=== PATIENT | female | born 1950 | race Caucasian/White ===

== ENCOUNTER 2020-04-04 06:25 | Outpatient (REF) | payer MEDICARE, SELFPAY ==
[2020-04-04 07:58] LABS: MANUAL DIFF FLAG NO
[2020-04-04 08:12] LABS: Basophils Absolute Auto 0.1 X10*3/uL (0.0-0.2); Basophils Percent Auto 0.5 % (0-2); Eosinophils Absolute Auto 0.3 X10*3/uL (0.0-0.4); Eosinophils Percent Auto 2.2 % (0-4); Hematocrit 48.6 % (37-47); Hemoglobin 15.6 g/dl (12.0-16.0); Imm Gran Abs Auto 0.05 X10*3/uL (0.00-0.03); Imm Gran Pct Auto 0.4 % (0.0-0.4); Lymphocytes Absolute Auto 4.2 X10*3/uL (1.2-4.9); Lymphocytes Percent Auto 36.7 % (20-40); Mean Corpuscular HGB Conc 32.1 g/dl (31.0-35.0); Mean Corpuscular Hemoglobin 28.6 pg (27.0-33.0); Mean Corpuscular Volume 89.2 fL (80-98); Mean Platelet Volume 11.3 fL (9.4-12.3); Monocytes Absolute Auto 0.8 X10*3/uL (0.1-1.2); Neutrophils Percent Auto 53.2 % (45-73); Platelet Count 283 X10*3/uL (160-400); Red Blood Count 5.45 X10*6/uL (4.20-5.50); Red Cell Distribution Width 13.5 % (11.0-16.0); White Blood Count 11.4 X10*3/uL (4.8-10.8)
[2020-04-04 08:43] LABS: Estimated Average Glucose 108 mg/dL; Hemoglobin A1c % 5.4 %
[2020-04-04 08:58] LABS: Thyroid Stimulating Hormone 1.56 uIU/mL (0.32-4.0)
[2020-04-04 09:07] LABS: Alanine Aminotransferase 9 U/L (0-31); Albumin Level 4.6 g/dL (3.5-5.0); Alkaline Phosphatase 132 U/L (39-117); Anion Gap 17 (12-20); Aspartate Amino Transferase 13 U/L (5-31); Bilirubin Total 0.7 mg/dL (0.0-1.0); Blood Urea Nitrogen 12 mg/dL (9-16); Calcium 9.5 mg/dL (8.4-10.2); Carbon Dioxide 25 mmol/L (22-29); Chloride 101 mmol/L (96-108); Cholesterol 188 mg/dL; Estimated Glomerular Filt Rate > 60; Glucose Fasting 122 mg/dL (60-99); HDL Cholesterol 59 mg/dL; LDL Cholesterol Calculated 83 mg/dl; Potassium 4.1 mmol/l (3.3-5.1); Sodium 139 mmol/L (135-145); Total Protein 7.7 g/dL (6.5-8.0); Triglycerides 234 mg/dL
== END 2020-04-04 06:26 | disposition home or self-care (01) ==
LOC: HO.LAB 06:25
PROVIDERS: Visit Provider Physician Assistant
DX: E78.5 Hyperlipidemia, unspecified (principal); I10 Essential (primary) hypertension; R73.09 Other abnormal glucose
CPT/HCPCS: 36415; 80053; 80061; 83036; 84443; 85025

== ENCOUNTER 2020-10-10 06:07 | Outpatient (REF) | payer MEDICARE, SELFPAY ==
[2020-10-10 07:59] LABS: Hematocrit 45.8 % (37-47); Hemoglobin 15.3 g/dl (12.0-16.0); Mean Corpuscular HGB Conc 33.4 g/dl (31.0-35.0); Mean Corpuscular Hemoglobin 29.5 pg (27.0-33.0); Mean Corpuscular Volume 88.4 fL (80-98); Mean Platelet Volume 11.4 fL (9.4-12.3); Platelet Count 248 X10*3/uL (160-400); Red Blood Count 5.18 X10*6/uL (4.20-5.50); Red Cell Distribution Width 13.3 % (11.0-16.0); White Blood Count 13.9 X10*3/uL (4.8-10.8)
[2020-10-10 08:06] LABS: Estimated Average Glucose 114 mg/dL; Hemoglobin A1C 151.6739 umol/L; Hemoglobin A1c % 5.6 %
[2020-10-10 08:12] LABS: Alanine Aminotransferase 11 U/L (0-31); Albumin Level 4.5 g/dL (3.5-5.0); Alkaline Phosphatase 137 U/L (39-117); Anion Gap 15 (12-20); Aspartate Amino Transferase 14 U/L (5-31); Blood Urea Nitrogen 9 mg/dL (9-16); Calcium 10.1 mg/dL (8.4-10.2); Carbon Dioxide 26 mmol/L (22-29); Chloride 101 mmol/L (96-108); Cholesterol 195 mg/dL; Estimated Glomerular Filt Rate > 60; Glucose Fasting 138 mg/dL (60-99); HDL Cholesterol 57 mg/dL; LDL Cholesterol Calculated 88 mg/dl; Potassium 4.4 mmol/L (3.3-5.1); Sodium 138 mmol/L (135-145); Total Protein 7.7 g/dL (6.5-8.0); Triglycerides 252 mg/dL
[2020-10-10 08:33] LABS: TSH reflex Free T4 2.35 uIU/mL (0.32-4.0)
[2020-10-10 09:14] LABS: Creatinine Urine 87.14 mg/dL; Microalbum/Creatinine Ratio Ur 17.2 ug/mg cr
== END 2020-10-10 06:08 | disposition home or self-care (01) ==
LOC: HO.LAB 06:07
PROVIDERS: PCP Physician Assistant; Visit Provider Physician Assistant
DX: E78.1 Pure hyperglyceridemia (principal); I10 Essential (primary) hypertension
CPT/HCPCS: 36415; 80053; 80061; 82043; 83036; 84443; 85027

== ENCOUNTER 2020-11-20 09:05 | Outpatient (REF) | payer MEDICARE, SELFPAY ==
--- NOTE | ~2020-11-20 | MM_ITS ---
EXAMINATION: BONE DENSITOMETRY CLINICAL INDICATION: Asymptomatic menopausal state. COMPARISON: Baseline BD dated 06/01/2018. TECHNIQUE: Using a [employer] DXA System (software version: 13.1) manufactured by [employer], dual-energy x-ray absorptiometry was performed of the lumbar spine and left hip. The images are of good technical quality. Summary results are attached. FINDINGS: AP SPINE L1-L4 (excluding L2 and L3): The data of L1-L4 has been changed to exclude the L2 and L3 vertebral bodies, because degenerative changes at these levels may cause overestimation of lumbar spine density. Current: BMD 1.086 g/cm2, Z-score 1.1, T-score -0.7, normal, 0.5% decrease from baseline (<5% change is not significant). Baseline: BMD 1.091 g/cm2. LEFT FEMUR, NECK: Current: BMD 0.815 g/cm2, Z-score 0.3, T-score -1.6, osteopenia. Baseline: BMD 0.857 g/cm2. LEFT FEMUR, TOTAL: Current: BMD 0.915 g/cm2, Z-score 0.9, T-score -0.7, normal, 5.0% decrease from baseline (<5% change is not significant). Baseline: BMD 0.963 g/cm2. IDENTIFIED RISK FACTORS: Menopause, family history (parental hip fracture), secondary osteoporosis. HISTORY OF FRACTURE: None listed. MEDICATIONS: None listed. MM/XR DEXA axial skeleton IMPRESSION: 1. DIAGNOSIS: Osteopenia based on the lowest T-score value of -1.6 in the femoral neck applying World Health Organization criteria. 2. 10-YEAR FRACTURE RISK PREDICTION, FRAX: Major osteoporotic fracture (clinical spine, forearm, hip or shoulder) 17.1%. Hip fracture 6.0%. 3. Treatment Recommendations: NOF guidelines recommend consideration for treatment in postmenopausal women and men age 50 and older presenting with the following: -A hip or vertebral (clinical or morphometric) fracture. -T-score less than or equal to -2.5 at the femoral neck or spine after appropriate evaluation to exclude secondary causes. -Low bone mass at the hip or spine and a 10-year fracture probability by FRAX of greater than or equal to 3% for hip fracture or greater than or equal to 20% for major osteoporotic fracture based on the [place] adapted WHO algorithm. 4. Other Recommendations: All treatment decisions require clinical judgment and consideration of individual patient factors, including patient preferences, comorbidities, previous drug use, risk factors not captured in the FRAX model (e.g. frailty, falls, vitamin D deficiency, increased bone turnover, interval significant decline in bone density) and possible under or overestimation of fracture risk by FRAX. Additional medical evaluation for secondary cause of low bone mineral density may be appropriate. FUTURE SCAN RECOMMENDATION: People with diagnosed cases of osteoporosis or at high risk for fracture should have regular bone mineral density tests. For patients eligible for Medicare, routine testing is allowed once every 2 years. The testing frequency can be increased to one year for patients who have rapidly progressing disease, those who are receiving or discontinuing medical therapy to restore bone mass, or have additional risk factors.
== END 2020-11-20 09:06 | disposition home or self-care (01) ==
LOC: HO.MAMMO 09:05
PROVIDERS: PCP Physician Assistant; Visit Provider Nurse Practitioner Family
DX: Z13.820 Encounter for screening for osteoporosis (principal); M85.80 Other specified disorders of bone density and structure, unspecified site; Z78.0 Asymptomatic menopausal state
CPT/HCPCS: 77080

== ENCOUNTER 2020-12-24 10:17 | Outpatient (REF) | payer MEDICARE, SELFPAY ==
--- NOTE | ~2020-12-24 | MM_ITS ---
EXAMINATION: MM SCREENING DIGITAL BREAST TOMOSYNTHESIS, BILATERAL CLINICAL INFORMATION: Screening. Asymptomatic. The lifetime risk of breast cancer based on the Tyrer-Cuzick Model is 3.6%. COMPARISON: Mammography: June 01, 2018 TECHNIQUE: Digital breast tomosynthesis is performed in both the craniocaudal and mediolateral oblique views along with computer-aided detection (CAD). Synthesized 2D images are generated from the tomosynthesis. FINDINGS: There are scattered areas of fibroglandular density (ACR BI-RADS breast composition Category b). On craniocaudal views bilaterally. There is question of asymmetric densities which are not circumscribed centrally without definite associated abnormality on mediolateral oblique projections however there is some dense tissue seen superiorly on mediolateral oblique projections bilaterally and on craniocaudal view by stefani since this these regions appear to be within the superior breasts bilaterally. Spot compression views are recommended. MM/MM tomosynthesis screening BI IMPRESSION: Bilateral regions of density on craniocaudal views for which spot compression views and possible ultrasound are recommended. ASSESSMENT: BI-RADS 0: Incomplete - Need Additional Imaging Evaluation RECOMMENDATION: 1. Additional views of the bilateral breasts 2. Targeted ultrasound if warranted after review of the additional views. 3. Radiology department staff will contact the patient for additional imaging. This patient's information was entered into a reminder system with a target due date for their next mammogram.
== END 2020-12-24 10:18 | disposition home or self-care (01) ==
LOC: HO.MAMMO 10:17
PROVIDERS: Visit Provider Physician Assistant
DX: Z12.31 Encounter for screening mammogram for malignant neoplasm of breast (principal)
CPT/HCPCS: 77063; 77067

== ENCOUNTER 2021-01-06 10:27 | Outpatient (REF) | payer MEDICARE, SELFPAY ==
--- NOTE | ~2021-01-06 | MM_ITS ---
EXAMINATION: MM DIAGNOSTIC DIGITAL BREAST TOMOSYNTHESIS, BILATERAL CLINICAL INFORMATION: Recall from screening for asymmetric density central outer left breast mid depth CC view and asymmetric density central right breast mid depth CC view. COMPARISON: Mammography: 12/24/2020, 06/01/2018 (baseline). TECHNIQUE: Digital breast tomosynthesis is performed. 2D images are generated from the tomosynthesis. The following views are obtained: Bilateral spot CC, bilateral rolled CC x2. FINDINGS: There are scattered areas of fibroglandular density (ACR BI-RADS breast composition Category b). The additional views show no interval mass or architectural abnormality. There are expected minor shifting fibroglandular densities. No developing density. No significant change from baseline study. Results are discussed with the patient at time of visit. MM/MM tomosynthesis added view BI IMPRESSION: Additional views show no significant changes from baseline exam. ASSESSMENT: BI-RADS 2: Benign RECOMMENDATION: Routine annual mammography screening. This patient's information was entered into a reminder system with a target due date for their next mammogram.
== END 2021-01-06 10:28 | disposition home or self-care (01) ==
LOC: HO.MAMMO 10:27
PROVIDERS: Visit Provider Physician Assistant
DX: R92.2 Inconclusive mammogram (principal)
CPT/HCPCS: 77062; 77066

== ENCOUNTER 2021-05-15 06:08 | Outpatient (REF) | payer MEDICARE, SELFPAY ==
[2021-05-15 07:26] LABS: Hematocrit 47.3 % (37.0-47.0); Hemoglobin 15.5 g/dl (12.0-16.0); Mean Corpuscular HGB Conc 32.8 g/dl (31.0-35.0); Mean Corpuscular Hemoglobin 28.9 pg (27.0-33.0); Mean Corpuscular Volume 88.2 fL (80.0-98.0); Mean Platelet Volume 11.2 fL (9.4-12.3); Platelet Count 217 X10*3/uL (160-400); Red Blood Count 5.36 X10*6/uL (4.20-5.50); Red Cell Distribution Width 13.2 % (11.0-16.0); White Blood Count 10.7 X10*3/uL (4.8-10.8)
[2021-05-15 07:30] LABS: Estimated Average Glucose 108 mg/dL; Hemoglobin A1c % 5.4 %
[2021-05-15 08:01] LABS: Alanine Aminotransferase 10 U/L (0-31); Albumin Level 4.5 g/dL (3.5-5.0); Alkaline Phosphatase 100 U/L (39-117); Anion Gap 14 (12-20); Aspartate Amino Transferase 16 U/L (5-31); Bilirubin Total 0.9 mg/dL (0.0-1.0); Blood Urea Nitrogen 15 mg/dL (9-16); Carbon Dioxide 28 mmol/L (22-29); Chloride 100 mmol/L (96-108); Cholesterol 174 mg/dL; Estimated Glomerular Filt Rate > 60; Glucose Fasting 130 mg/dL (60-99); HDL Cholesterol 63 mg/dL; LDL Cholesterol Calculated 81 mg/dl; Sodium 138 mmol/L (135-145); Total Protein 7.6 g/dL (6.5-8.0); Triglycerides 152 mg/dL
[2021-05-15 08:11] LABS: TSH reflex Free T4 1.82 uIU/mL (0.32-4.0)
[2021-05-15 09:34] LABS: Creatinine Urine 81.92 mg/dL; Microalbum/Creatinine Ratio Ur 15.8 ug/mg cr
== END 2021-05-15 06:09 | disposition home or self-care (01) ==
LOC: HO.LAB 06:08
PROVIDERS: PCP Physician Assistant; Visit Provider Physician Assistant
DX: R73.09 Other abnormal glucose (principal); I10 Essential (primary) hypertension; E78.1 Pure hyperglyceridemia
CPT/HCPCS: 36415; 80053; 80061; 82043; 83036; 84443; 85027

== ENCOUNTER 2021-11-21 06:06 | Outpatient (REF) | payer MEDICARE, SELFPAY ==
[2021-11-21 07:40] LABS: Hematocrit 46.5 % (37.0-47.0); Hemoglobin 15.3 g/dl (12.0-16.0); Mean Corpuscular HGB Conc 32.9 g/dl (31.0-35.0); Mean Corpuscular Hemoglobin 29.1 pg (27.0-33.0); Mean Corpuscular Volume 88.4 fL (80.0-98.0); Mean Platelet Volume 11.4 fL (9.4-12.3); Platelet Count 185 X10*3/uL (160-400); Red Blood Count 5.26 X10*6/uL (4.20-5.50); Red Cell Distribution Width 13.1 % (11.0-16.0); White Blood Count 8.8 X10*3/uL (4.8-10.8)
[2021-11-21 07:42] LABS: Alanine Aminotransferase 10 U/L (0-31); Aspartate Amino Transferase 15 U/L (5-31); Blood Urea Nitrogen 16 mg/dL (9-16); Cholesterol 193 mg/dL; Estimated Glomerular Filt Rate > 60; HDL Cholesterol 58 mg/dL
[2021-11-21 08:04] LABS: TSH reflex Free T4 1.99 uIU/mL (0.32-4.0)
[2021-11-21 09:09] LABS: Albumin Level 4.5 g/dL (3.5-5.0); Alkaline Phosphatase 122 U/L (39-117); Anion Gap 20 (12-20); Bilirubin Total 0.6 mg/dL (0.0-1.0); Calcium 9.4 mg/dL (8.4-10.2); Carbon Dioxide 20 mmol/L (22-29); Chloride 104 mmol/L (96-108); Glucose Fasting 122 mg/dL (60-99); LDL Cholesterol Calculated 100 mg/dl; Potassium 4.3 mmol/L (3.3-5.1); Sodium 140 mmol/L (135-145); Total Protein 7.9 g/dL (6.5-8.0); Triglycerides 177 mg/dL
[2021-11-21 13:46] LABS: Creatinine Urine 52.84 mg/dL; Microalbumin Urine < 5.0 mg/L
== END 2021-11-21 06:07 | disposition home or self-care (01) ==
LOC: HO.LAB 06:06
PROVIDERS: PCP Physician Assistant; Visit Provider Physician Assistant
DX: I10 Essential (primary) hypertension (principal); E78.1 Pure hyperglyceridemia
CPT/HCPCS: 36415; 80053; 80061; 82043; 84443; 85027

== ENCOUNTER 2022-06-15 06:19 | Outpatient (REF) | payer MEDICARE, SELFPAY ==
[2022-06-15 08:04] LABS: Hemoglobin 15.4 g/dl (12.0-16.0); Mean Corpuscular HGB Conc 33.5 g/dl (31.0-35.0); Mean Corpuscular Hemoglobin 29.6 pg (27.0-33.0); Mean Corpuscular Volume 88.5 fL (80.0-98.0); Mean Platelet Volume 10.9 fL (9.4-12.3); Platelet Count 235 X10*3/uL (160-400); Red Cell Distribution Width 13.2 % (11.0-16.0); White Blood Count 10.2 X10*3/uL (4.8-10.8)
[2022-06-15 08:26] LABS: Alanine Aminotransferase 11 U/L (0-31); Albumin Level 4.5 g/dL (3.5-5.0); Alkaline Phosphatase 102 U/L (39-117); Anion Gap 16 (12-20); Aspartate Amino Transferase 14 U/L (5-31); Blood Urea Nitrogen 9 mg/dL (9-16); Calcium 9.6 mg/dL (8.4-10.2); Carbon Dioxide 27 mmol/L (22-29); Chloride 100 mmol/L (96-108); Cholesterol 182 mg/dL; Estimated Glomerular Filt Rate > 60; Glucose Fasting 118 mg/dL (60-99); HDL Cholesterol 68 mg/dL; LDL Cholesterol Calculated 79 mg/dl; Potassium 3.7 mmol/L (3.3-5.1); Sodium 139 mmol/L (135-145); Total Protein 7.3 g/dL (6.5-8.0); Triglycerides 178 mg/dL
[2022-06-15 08:44] LABS: TSH reflex Free T4 1.94 uIU/mL (0.32-4.0)
[2022-06-15 09:07] LABS: Creatinine Urine 151.28 mg/dL; Microalbum/Creatinine Ratio Ur 19.8 ug/mg cr
== END 2022-06-15 06:20 | disposition home or self-care (01) ==
LOC: HO.LAB 06:19
PROVIDERS: PCP Physician Assistant; Visit Provider Physician Assistant
DX: R73.09 Other abnormal glucose (principal); I10 Essential (primary) hypertension
CPT/HCPCS: 36415; 80053; 80061; 82043; 84443; 85027

== ENCOUNTER 2022-12-11 06:07 | Outpatient (REF) | payer MEDICARE, SELFPAY ==
[2022-12-11 07:12] LABS: Hematocrit 47.4 % (37.0-47.0); Hemoglobin 15.6 g/dl (12.0-16.0); Mean Corpuscular HGB Conc 32.9 g/dl (31.0-35.0); Mean Corpuscular Hemoglobin 29.3 pg (27.0-33.0); Mean Corpuscular Volume 89.1 fL (80.0-98.0); Platelet Count 240 X10*3/uL (160-400); Red Blood Count 5.32 X10*6/uL (4.20-5.50); Red Cell Distribution Width 13.1 % (11.0-16.0); White Blood Count 11.4 X10*3/uL (4.8-10.8)
[2022-12-11 07:36] LABS: Alanine Aminotransferase 9 U/L (0-31); Albumin Level 4.5 g/dL (3.5-5.0); Alkaline Phosphatase 103 U/L (39-117); Anion Gap 19 (12-20); Aspartate Amino Transferase 14 U/L (5-31); Bilirubin Total 0.6 mg/dL (0.0-1.0); Blood Urea Nitrogen 12 mg/dL (9-16); Calcium 10.4 mg/dL (8.4-10.2); Carbon Dioxide 24 mmol/L (22-29); Chloride 102 mmol/L (96-108); Cholesterol 188 mg/dL (<200); Estimated Glomerular Filt Rate > 60; Glucose Fasting 134 mg/dL (60-99); HDL Cholesterol 60 mg/dL (>40); LDL Cholesterol Calculated 90 mg/dL (<100); Potassium 3.9 mmol/L (3.3-5.1); Sodium 141 mmol/L (135-145); Total Protein 7.9 g/dL (6.5-8.0); Triglycerides 194 mg/dL (<150)
[2022-12-11 07:52] LABS: TSH reflex Free T4 2.05 uIU/mL (0.32-4.0)
== END 2022-12-11 06:08 | disposition home or self-care (01) ==
LOC: HO.LAB 06:07
PROVIDERS: PCP Physician Assistant; Visit Provider Physician Assistant
DX: E78.1 Pure hyperglyceridemia (principal); I10 Essential (primary) hypertension
CPT/HCPCS: 36415; 80053; 80061; 84443; 85027

== ENCOUNTER 2022-12-15 09:27 | Outpatient (AMB) | payer MEDICARE, SELFPAY ==
[2022-12-15 09:30] VITALS: BP 180/76; PULSE 135; RESP 17; O2SAT 97; BMI 24.0
--- NOTE | 2022-12-15 09:30 | A.OFFPC_ITS ---
Vital Signs 12/15/22 09:30 12/15/22 10:19 Height 5 ft 4 in Weight 140 lb BMI 24.0 BP 180/76 H 160/80 H Blood Pressure Location Lt brachial Position Sitting Respiration 17 Pulse 135 H Pulse Source Pulse Oximeter Pulse Oximetry (%) 97 Oxygen Delivery Method Room Air Intake Visit Reasons: f/u HTN Chemistry Tutor Required: No Accompanied by: Self / Same As Patient Allergies barium sulfate [CONTRAST,ORAL] Allergy (Unknown, Verified 12/15/22 10:06) NAUSEA AND VOMITTING lisinopril Allergy (Unknown, Verified 12/15/22 10:06) Cough Medication List - Last Reconciled 12/15/22 by Odell Galan PA-C atorvastatin 20 mg PO DAILY 90 days calcium carbonate (Calcium 500) 500 mg PO DAILY cholecalciferol (vitamin D3) 50 mcg PO DAILY losartan 75 mg (1.5 x 50 mg) PO DAILY 90 days omega-3 acid ethyl esters 1 cap PO DAILY Tobacco use date assessed: 06/17/22 Fall risk assessment: No Falls in past year Last assessed Fall Risk: 12/15/22 Dental Screening Dental Screen Date: 12/15/22 Did you have a dental visit in the last 12 months?: No Did you have a dental problem in the last 6 months where you did not have access to dental care?: No Was dental information given to patient?: Patient declined HPI f/u HTN HPI Details Asmita is a 72? y/o F here today for a follow-up visit. ? Patient has a pmhx significant for HTN, HLD, impaired glucose metabolism. ? .. ? HTN: Has been checking her blood pressures at home and reports systolics 130s to 140s s.? And heart rates 80s to 100. She does report when coming into the office her blood pressures and heart rates are elevated due to her anxiety. ?Denies any headaches, chest discomfort, shortness of breath. She reports since increasing losartan dose to 75 mg she has been been feeling funny and would like to return back to using valsartan 160 mg. PLAN: Will return back to valsartan with the addition of hydrochlorothiazide for better blood pressure control ? .. ? Impaired glucose metabolism: A1c acceptable, patient's fasting blood sugar continues to be elevated. She reports some dietary indiscretion as of late which can be attributed to her elevated blood sugars. ? .. ? Hyperlipidemia: Patient has been trying to cut down on her carbs and sugary foods. Have noted some weight loss. Lipid panel stable, triglycerides are slightly elevated.? 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 She will try to work on reducing her consumption of baked goods to help reduce her cholesterol panel. Laboratory Tests 06/15/22 12/11/22 06:33 06:16 WBC 11.4 H Hct 47.4 H Fasting Glucose 134 H Triglycerides 178 194 H TSH 2.05 PFSH Medical History Post-menopausal Screening for breast cancer Surgical History History of colonoscopy History of incisional hernia repair History of colectomy Family History Father Alzheimers disease Prostate cancer Mother Pulmonary disease Daughter Cholesteatoma Social History Housing: House Alcohol intake: current Alcohol intake frequency: holidays/special occasions only Alcohol type: wine Patient Tobacco Use Status: Former Tobacco user e-Cigarette/Vaping Use: Never Used Second Hand Smoke Exposure: No service: No Current occupational status: retired Cognitive needs: No Hearing needs: No Vision needs: Yes (Glasses) Questionnaire Thrive Questionnaire Date Thrive assessed: 06/17/22 FREDERICK-7 AMB Questionnaire FREDERICK-7 Date FREDERICK - 7 assessed: 06/17/22 Source: Developed by Drs. Reese Barrett, Pamela Hollis, Ry Woods and colleagues, with an educational kelly from [employer]. Review of Systems Const Denies headache(s) Eyes Denies loss of vision ENT Denies vertigo, Denies dizziness, Denies headache(s) and Denies sore throat Card Denies chest pain, Denies leg edema and Denies lightheadedness Resp Denies cough, Denies hemoptysis and Denies wheezing GI Denies abdominal pain, Denies melena, Denies constipation, Denies diarrhea and Denies vomiting Denies urinary frequency, Denies dysuria and Denies urinary urgency Musc Denies arthralgias, Denies joint swelling, Denies numbness and Denies tingling Neuro Denies Abnormal speech present, Denies behavioral changes, Denies vertigo, Denies dizziness, Denies headache(s), Denies loss of vision, Denies memory loss, Denies numbness and Denies tingling Psych Denies anxiety, Denies behavioral changes, Denies depression, Denies memory loss and Denies panic attacks Rajendra/Lymph Denies easy bleeding and Denies easy bruising Aller/Immun Denies wheezing Physical exam (Primary Care) Vital Signs: Last Vital Signs Pulse 135 H 12/15/22 09:30 Resp 17 12/15/22 09:30 BP 160/80 H 12/15/22 10:19 Pulse Ox 97 12/15/22 09:30 Oxygen Delivery Method Room Air 12/15/22 09:30 BMI result Body Mass Index 24.0 Tobacco/Smoking Status: Tobacco use Status Tobacco use date assessed 06/17/22 12/15/22 09:32 Patient Tobacco Use Status Former Tobacco user 12/15/22 09:32 e-Cigarette/Vaping Use Never Used 12/15/22 09:32 Thrive Assessment: Date of Thrive Assessment Date Thrive assessed 06/17/22 12/15/22 09:32 Const General: healthy appearing, no acute distress, alert and awake Nutritional Appearance: well nourished Orientation/consciousness: oriented to person, oriented to place and oriented to time HENMT Ears: TM's normal bilaterally General nose exam: Normal nasal mucous membranes and turbinates present Eyes Conjunctivae: conjunctivae normal Sclerae: sclerae normal Pupils: Equal, round and reactive pupils present Neck Neck: Yes no lymphadenopathy and Yes no JVD Thyroid: Thyroid normal Carotids: no bruits Resp Effort & Inspection: normal respiratory effort and not tachypneic Auscultation: no crackles, no rales, no rhonchi and no wheezes Cardio Rate: regular rate Rhythm: regular rhythm Heart sounds: no murmurs and normal S1 and S2 GI Palpation (GI): Soft to palpation, nontender, no hepatomegaly and no splenomegaly Auscultation: normal bowel sounds Skin General skin exam: no rashes or lesions noted and dry skin Neuro General: oriented to person, oriented to place and oriented to time Cranial nerves: Yes Equal, round and reactive pupils present Speech: No Abnormal speech present Gait exam (Neuro): Normal gait present Motor exam (neuro): no tremor noted Extrem Right upper extremity: full ROM Left upper extremity: full ROM Right lower extremity: full ROM; no edema Left lower extremity: full ROM; no edema Psych Mental Status: mental status grossly normal Speech and movement: Normal speech and movement present Affect: normal affect Attitude: cooperative Thought process: Normal thought process present Assessment and Plan Assessment & Plan (1) HLD (hyperlipidemia): Code(s): E78.5 - Hyperlipidemia, unspecified Qualifiers: Hyperlipidemia type: pure hypertriglyceridemia Qualified Code(s): E78.1 - Pure hyperglyceridemia Plan: Patient will continue current dose in therapy. Most recent lipid panel acceptable the exception of triglycerides which were slightly elevated. Goal LDL to be below 130 (2) HTN (hypertension): Code(s): I10 - Essential (primary) hypertension Qualifiers: Hypertension type: essential hypertension Qualified Code(s): I10 - Essential (primary) hypertension Plan: Patient's blood pressure elevated today in office. She does have white coat hypertension. She reports that home blood pressures are 130s to 140 systolic, she does not recall heart rates. She would like to be placed back on valsartan as she feels it work better for blood pressure control. Also will add on hydrochlorothiazide 12.5 mg for better blood pressure control. Will continue to monitor blood pressures at home with goal blood pressure to be below 140/90 consistently (3) Anxiety: Code(s): F41.9 - Anxiety disorder, unspecified Plan: Suffer from anxiety disorder to which she is able to manage on her own without medication. Not interested in speaking with a mental health therapist. Orders: Orders Comprehensive [place]. Panel Fast Today I10 - Essential (primary) hypertension Hemoglobin A1c Today R73.09 - Other abnormal glucose Lipid Panel Today E78.1 - Pure hyperglyceridemia Microalbumin, Random (w Creat) Today I10 - Essential (primary) hypertension Complete Blood Count no Diff Today I10 - Essential (primary) hypertension Medications: New hydrochlorothiazide 12.5 mg PO DAILY 90 days 90 tabs 1RF I10 - Essential (primary) hypertension valsartan 160 mg PO DAILY 90 days 90 tabs 1RF I10 - Essential (primary) hypertension Discontinued losartan Discontinued Reason: Doctor's Order 75 mg (1.5 x 50 mg) PO DAILY 90 days 135 tabs 1RF I10 - Essential (primary) hypertension Coding Level of Care Code Est Pt Level 4 (76906) Diagnoses Pure hypertriglyceridemia E78.1 Hyperlipidemia type: pure hypertriglyceridemia Essential hypertension I10 Hypertension type: essential hypertension Anxiety F41.9
[2022-12-15 10:19] VITALS: BP 160/80
== END 2022-12-15 10:27 | disposition home or self-care (01) ==
PROVIDERS: Visit Provider Physician Assistant
DX: E78.1 Pure hyperglyceridemia (principal); I10 Essential (primary) hypertension; F41.9 Anxiety disorder, unspecified
CPT/HCPCS: 99214

== ENCOUNTER 2023-02-11 11:31 | Inpatient (IN) | payer MEDICARE, SELFPAY ==
[2023-02-11] VITALS (7 sets, daily range): BP systolic 143–188; BP diastolic 57–83; PULSE 102–126; RESP 18–28; TEMP 36–37.4; O2SAT 87–100; BMI 23.3
--- NOTE | ~2023-02-11 | XR_ITS ---
EXAMINATION: XR CHEST 2 VIEW CLINICAL INFORMATION: Shortness of breath COMPARISON: 08/07/2015 TECHNIQUE: PA and lateral views of the chest obtained. FINDINGS: The lungs are clear. There are no pleural effusions. The cardiomediastinal silhouette is normal. XR/XR chest 2V IMPRESSION: No acute cardiopulmonary disease.
--- NOTE | 2023-02-11 11:38 | ECG_ITS ---
Test Reason : SOB Blood Pressure : / mmHG Vent. Rate : 118 BPM Atrial Rate : 118 BPM P-R Int : 152 ms QRS Dur : 060 ms QT Int : 310 ms P-R-T Axes : 071 073 070 degrees QTc Int : 434 ms Sinus tachycardia Possible Left atrial enlargement Borderline ECG When compared with ECG of 08-AUG-2015 08:03, No significant change was found Referred By: Generic ED Physician Electronically Signed By:DESIRE GARCIA MD
[2023-02-11 12:06] LABS: Glucose, Whole Blood 94 mg/dL (60-115)
[2023-02-11 12:27] LABS: MANUAL DIFF FLAG NO
[2023-02-11 12:31] LABS: Basophils Percent Auto 0.2 % (0-2); Hemoglobin 14.5 g/dl (12.0-16.0); Imm Gran Abs Auto 0.01 X10*3/uL (0.00-0.03); Imm Gran Pct Auto 0.2 % (0.0-0.4); Lymphocytes Absolute Auto 0.8 X10*3/uL (1.2-4.9); Lymphocytes Percent Auto 19.1 % (20-40); Mean Corpuscular HGB Conc 33.7 g/dl (31.0-35.0); Mean Corpuscular Hemoglobin 29.1 pg (27.0-33.0); Mean Corpuscular Volume 86.2 fL (80.0-98.0); Mean Platelet Volume 10.3 fL (9.4-12.3); Monocytes Absolute Auto 0.7 X10*3/uL (0.1-1.2); Monocytes Percent Auto 16.1 % (2-11); Neutrophils Absolute Auto 2.8 x10*3/uL (2.0-8.3); Neutrophils Percent Auto 64.4 % (45-73); Platelet Count 150 X10*3/uL (160-400); Red Blood Count 4.99 X10*6/uL (4.20-5.50); White Blood Count 4.4 X10*3/uL (4.8-10.8)
[2023-02-11 12:34] LABS: INTERNATIONAL NORM RATIO 0.9 (0.9-1.1); Prothrombin Time 11.5 SEC (11.1-13.3)
[2023-02-11 12:37] LABS: Partial Thromboplastin Time 32.6 SEC (26.0-36.4)
[2023-02-11 12:45] LABS: Alanine Aminotransferase 10 U/L (0-31); Alkaline Phosphatase 78 U/L (39-117); Anion Gap 13 (12-20); Aspartate Amino Transferase 22 U/L (5-31); Bilirubin Total 0.4 mg/dL (0.0-1.0); Blood Urea Nitrogen 10 mg/dL (9-16); Carbon Dioxide 30 mmol/L (22-29); Chloride 96 mmol/L (96-108); Creatinine Clr Calc Pharmacy 67.6; Estimated Glomerular Filt Rate > 60; Glucose Random 103 mg/dL (60-115); Potassium 3.2 mmol/L (3.3-5.1); Sodium 136 mmol/L (135-145); Total Protein 7.4 g/dL (6.5-8.0)
[2023-02-11 12:48] LABS: B Type Natriuretic Peptide 34 pg/mL (<100)
[2023-02-11 12:53] LABS: Troponin-I High Sensitivity 3.8 ng/L (<3.5-17.0)
--- NOTE | 2023-02-11 12:55 | ED_ITS ---
HPI - General Adult General Chief complaint: General Medical Stated complaint: SOB,COUGH,WEAK X3 DAYS PER EMS Time Seen by Provider: 02/11/23 12:52 Source: patient and old records reviewed Mode of arrival: EMS Limitations: no limitations History of Present Illness HPI narrative: 72 yo female with PMH of HTN, HLD, anxiety, quit smoking 10 years ago who was with her daughter over Thanksgiving - daughter was sick. Patient became sick after visit this Wednesday with cough and chills not feeling well. The last two days have worsened with increased shortness of breath, congestion, worsening breathing. Arrival O2 87%. She does not wear O2 at home and does not have a hx of albuterol use. Has not eaten or drank much in 3 days. No flu or pneumonia shot, COVID boostered. MD complaint: viral symptoms and difficulty breathing Onset (ago): day(s) (since Wednesday) Location: chest Severity: moderate Relieving factors: rest Exacerbating factors: other (exertion, eating, movement) Associated symptoms: cough, fever/chills, headaches, loss of appetite, malaise, nausea/vomiting and shortness of breath Treatments prior to arrival: none Related Data Home Medications Medication Instructions Recorded Confirmed atorvastatin 20 mg tablet 20 mg PO BEDTIME 02/11/23 02/11/23 valsartan 160 mg tablet 160 mg PO BEDTIME 02/11/23 02/11/23 Previous Rx's Medication Instructions Recorded hydrochlorothiazide 12.5 mg tablet 12.5 mg PO DAILY 90 days #90 tabs 12/15/22 Allergies Allergy/AdvReac Type Severity Reaction Status Date / Time barium sulfate Allergy Unknown NAUSEA AND Verified 12/15/22 10:06 [CONTRAST,ORAL] VOMITTING lisinopril Allergy Unknown Cough Verified 12/15/22 10:06 Review of Systems 2 Review of Systems: Constitutional : No Fever, pos Chills ENT/Mouth : No Hoarseness, No sore throat, No Rhinorrhea Eyes: No Redness, No Discharge, No Vision Changes Cardiovascular : No Chest Pain, positive SOB, positive Dyspnea on Exertion, No Edema Respiratory : positive Cough, No Sputum, positive Wheezing, Gastrointestinal : pos Nausea, No Vomiting, No Diarrhea, No abdominal Pain Genitourinary : No Dysuria, No Hematuria Musculoskeletal : No joint pain, pos Myalgias Skin : No rash Neuro : pos Weakness, No Numbness, No Headache Psych : No anxiety, depression Heme/Lymph: No Bruising, No Bleeding Endocrine : No Polyuria, No Polydipsia All other systems reviewed and are negative PMFSH Past Medical History Attestation statement: The following information was validated with the patient. Source: old records reviewed Medical History Post-menopausal Screening for breast cancer Surgical History History of colonoscopy History of incisional hernia repair History of colectomy Family History Family History Father Alzheimers disease Prostate cancer Mother Pulmonary disease Daughter Cholesteatoma Social History Social History Household Members: Spouse Housing: House Do you presently have visiting nurse or other home services: No Alcohol intake: current Alcohol intake frequency: holidays/special occasions only Alcohol type: wine Patient Tobacco Use Status: Former Tobacco user Smoked in Last 30 Days: No e-Cigarette/Vaping Use: Never Used Second Hand Smoke Exposure: No Use of substances other than those prescribed or required for medical reasons: No Have you been hit, kicked, punched, or otherwise hurt by someone within the past year? If so, by whom?: No Do you feel safe in your current relationship?: Yes Is there a partner from a previous relationship who is making you feel unsafe now?: No Are you made to feel afraid or neglected: No Advance Directives: No Advance Directives Information Provided: No Do you have thoughts of harming others: None Do you have a plan to hurt others: No Plan Recently lost weight without trying: No Eating poorly because of decreased appetite: Yes Nutrition Risks: No Nutritional Risk Patient : No : No Poor oral hygiene: No service: No Current occupational status: retired Cognitive needs: No Hearing needs: No Vision needs: Yes (Glasses) Physical Exam ED Vital Signs: Vital Signs - 24 hr 02/11/23 11:47 02/11/23 12:37 02/11/23 13:42 Temperature 99.3 F 98.9 F Pulse Rate 126 H 119 H 111 H Respiratory Rate 26 H 18 24 H Blood Pressure 188/83 H 175/79 H Pulse Oximetry 87 L 97 Oxygen Delivery Method Room Air Nasal Cannula Oxygen Flow Rate 2 02/11/23 13:42 02/11/23 14:22 Temperature 98.5 F Pulse Rate 117 H 119 H Respiratory Rate 26 H 28 H Blood Pressure 143/62 H Pulse Oximetry 99 Oxygen Delivery Method Nasal Cannula Oxygen Flow Rate 2 BMI result Body Mass Index 23.3 Appearance: Alert. Oriented X3. Mild acute distress. Eyes: Pupils equal, round and reactive to light. ENT: Pharynx dry MM Neck: Normal inspection. Neck supple. CVS: tachycardic heart rate and rhythm. Pulses normal. Respiratory: Mild respiratory distress tachypnea and retractions Breath sounds coarse and tight with diffuse exp wheezes Abdomen: Soft and nontender. Skin: Skin warm and dry. Normal skin color. Normal skin turgor. Extremities: No lower extremity edema. No calf ttp Neuro: Oriented X 3. No motor deficit. No sensory deficit. Course Course Course Narrative: starting tamiflu given hypoxia and work of breathing as well as hospitalization Medications Administered Generic Name Dose Route Start Last Admin Trade Name Freq PRN Reason Stop Dose Admin Albuterol/Ipratropium 3 ml 02/11/23 16:00 02/11/23 20:07 Albuterol/Iprat 2.5/0.5mg 3 Ml Ampul.Neb INHALE Not Given RQ4H WHILE AWAKE SOWMYA Enoxaparin Sodium 40 mg 02/11/23 14:45 02/11/23 15:04 Enoxaparin Sodium 40 Mg/0.4 Ml Syringe SUBCUT 40 mg Q24H SOWMYA Administration Sodium Chloride 1,000 mls @ 100 mls/hr 02/11/23 13:45 02/11/23 13:48 Ns IVCONT 100 mls/hr .Q10H SOWMYA Administration Methylprednisolone Sodium Succinate 40 mg 02/11/23 21:00 02/11/23 21:07 Methylprednisolone Sod Succ 40 Mg/Ml Vial IVPUSH 40 mg Q12H SOWMYA Administration Oseltamivir Phosphate 75 mg 02/11/23 21:00 02/11/23 21:08 Oseltamivir Phosphate 75 Mg Capsule PO 02/15/23 21:01 75 mg Q12H SOWMYA Administration Sodium Chloride 3 ml 02/11/23 16:00 02/11/23 17:12 0.9 % Sodium Chloride Flush 3 Ml Syringe IVFLUSH 3 ml QSHIFT SOWMYA Administration Discontinued Medications Generic Name Dose Route Start Last Admin Trade Name Júnior PRN Reason Stop Dose Admin Acetaminophen 650 mg 02/11/23 13:25 02/11/23 13:51 Acetaminophen 325 Mg Tablet PO 02/11/23 13:26 650 mg ONCE ONE Administration Albuterol Sulfate 2.5 mg/ 5 mg 02/11/23 13:39 02/11/23 13:41 Albuterol Sulfate 2.5 mg INHALE 02/11/23 13:40 5 mg ONCE ONE Administration Ceftriaxone Sodium 1 gm/ 50 mls @ 100 mls/hr 02/11/23 13:25 02/11/23 14:58 Sodium Chloride IV 02/11/23 13:54 Infused ONCE ONE Infusion Azithromycin 500 mg/ Sodium 250 mls @ 125 mls/hr 02/11/23 13:25 02/11/23 17:11 Chloride IV 02/11/23 15:24 Infused ONCE ONE Infusion Methylprednisolone Sodium Succinate 60 mg 02/11/23 13:24 02/11/23 13:49 Methylprednisolone Sod Succ 125 Mg/2 Ml Vial IVPUSH 02/11/23 13:25 60 mg ONCE ONE Administration Oseltamivir Phosphate 75 mg 02/11/23 13:33 02/11/23 13:51 Oseltamivir Phosphate 75 Mg Capsule PO 02/11/23 13:34 75 mg ONCE ONE Administration Potassium Chloride 40 meq 02/11/23 13:33 02/11/23 13:53 Potassium Chloride Packet 20 Meq Packet PO 02/11/23 13:34 40 meq ONCE ONE Administration Medical Decision Making Medical Decision Making MDM Narrative: 72 yo female with PMH of HTN, HLD, anxiety, quit smoking 10 years ago here with viral like illness, coarse and tight lungs with wheezes and tachycardia after exposure to her sick daughter over . At this time possible bronchitis, viral or pneumonia. Will give IVF, steroids, potassium to replete, neb treatment, needs O2 as she is hyoxic and 87% on RA. Viral panel and empiric abx for bronchitis/pneumonia. Likely admit given work of breathing and hypoxia. Differential Diagnosis Differential Diagnoses: The differential diagnosis associated with the presentation includes bronchitis, pneumonia, viral syndrome Admission/Observation Consideration of admission/observation: Escalation of care including admission/observation considered admit given hypoxia Consult Healthcare Provider Management of the patient was discussed with: Hospitalist (agrees to admit) Lab Data MDM Lab Attestation statement: I reviewed the patient's lab results. 02/11/23 12:23 02/11/23 12:23 Labs: Lab Results 02/11/23 02/11/23 02/11/23 Range/Units 11:40 12:23 12:25 WBC 4.4 L (4.8-10.8) X10*3/uL RBC 4.99 (4.20-5.50) X10*6/uL Hgb 14.5 (12.0-16.0) g/dl Hct 43.0 (37.0-47.0) % MCV 86.2 (80.0-98.0) fL MCH 29.1 (27.0-33.0) pg MCHC 33.7 (31.0-35.0) g/dl RDW 13.0 (11.0-16.0) % Plt Count 150 L D (160-400) X10*3/uL MPV 10.3 (9.4-12.3) fL Immature Gran % (Auto) 0.2 (0.0-0.4) % Neut % (Auto) 64.4 (45-73) % Lymph % (Auto) 19.1 L (20-40) % [place] % (Auto) 16.1 H (2-11) % Eos % (Auto) 0.0 (0-4) % Baso % (Auto) 0.2 (0-2) % Lymph # (Auto) 0.8 L (1.2-4.9) X10*3/uL [place] # (Auto) 0.7 (0.1-1.2) X10*3/uL Eos # (Auto) 0.0 (0.0-0.4) X10*3/uL Baso # (Auto) 0.0 (0.0-0.2) X10*3/uL Abs Immat Gran (auto) 0.01 (0.00-0.03) X10*3/uL Absolute Neuts (auto) 2.8 (2.0-8.3) x10*3/uL Absolute Nucleated RBC 0.000 (0.0-0.012) X10*3/uL Nucleated RBC % (auto) 0.0 (0.0-0.2) /100WBC PT 11.5 (11.1-13.3) SEC INR 0.9 (0.9-1.1) APTT 32.6 (26.0-36.4) SEC Sodium 136 (135-145) mmol/L Potassium 3.2 L (3.3-5.1) mmol/L Chloride 96 (96-108) mmol/L Carbon Dioxide 30 H (22-29) mmol/L Anion Gap 13 (12-20) BUN 10 (9-16) mg/dL Creatinine 0.63 (0.5-1.4) mg/dL Estim Creat Clear Calc 67.6 Estimated GFR > 60 POC Glucose 94 (60-115) mg/dL Random Glucose 103 (60-115) mg/dL Lactic Acid (0.5-2.0) mmol/L Calcium 9.0 D (8.4-10.2) mg/dL Magnesium 2.0 (1.6-2.6) mg/dL Total Bilirubin 0.4 (0.0-1.0) mg/dL AST 22 (5-31) U/L ALT 10 (0-31) U/L Alkaline Phosphatase 78 (39-117) U/L Troponin I High Sens 3.8 (<3.5-17.0) ng/L B-Natriuretic Peptide 34 (<100) pg/mL Total Protein 7.4 (6.5-8.0) g/dL Albumin 4.0 (3.5-5.0) g/dL Procalcitonin 0.02 ng/mL Urine Color Urine Appearance Urine pH (5.0-9.0) Ur Specific [place] (1.005-1.025) Urine Protein (Neg-Trace) mg/dL Urine Glucose (UA) (Negative) mg/dL Urine Ketones (Negative) mg/dL Urine Blood (Negative) Urine Nitrite (Negative) Ur Leukocyte Esterase (Negative) Urine RBC (0-2) /HPF Urine WBC (0-5) /HPF Ur Squamous Epith Cells (0-2) /HPF Urine Bacteria (None Seen) Hyaline Casts (0-2) /LPF Influenza Type A (PCR) POSITIVE A (Negative) Influenza Type B (PCR) NEGATIVE (Negative) RSV RNA Qual (PCR) NEGATIVE (Negative) SARS-CoV-2 RNA (RT-PCR) NEGATIVE (Negative) 02/11/23 02/11/23 Range/Units 12:59 13:45 WBC (4.8-10.8) X10*3/uL RBC (4.20-5.50) X10*6/uL Hgb (12.0-16.0) g/dl Hct (37.0-47.0) % MCV (80.0-98.0) fL MCH (27.0-33.0) pg MCHC (31.0-35.0) g/dl RDW (11.0-16.0) % Plt Count (160-400) X10*3/uL MPV (9.4-12.3) fL Immature Gran % (Auto) (0.0-0.4) % Neut % (Auto) (45-73) % Lymph % (Auto) (20-40) % [place] % (Auto) (2-11) % Eos % (Auto) (0-4) % Baso % (Auto) (0-2) % Lymph # (Auto) (1.2-4.9) X10*3/uL [place] # (Auto) (0.1-1.2) X10*3/uL Eos # (Auto) (0.0-0.4) X10*3/uL Baso # (Auto) (0.0-0.2) X10*3/uL Abs Immat Gran (auto) (0.00-0.03) X10*3/uL Absolute Neuts (auto) (2.0-8.3) x10*3/uL Absolute Nucleated RBC (0.0-0.012) X10*3/uL Nucleated RBC % (auto) (0.0-0.2) /100WBC PT (11.1-13.3) SEC INR (0.9-1.1) APTT (26.0-36.4) SEC Sodium (135-145) mmol/L Potassium (3.3-5.1) mmol/L Chloride (96-108) mmol/L Carbon Dioxide (22-29) mmol/L Anion Gap (12-20) BUN (9-16) mg/dL Creatinine (0.5-1.4) mg/dL Estim Creat Clear Calc Estimated GFR POC Glucose (60-115) mg/dL Random Glucose (60-115) mg/dL Lactic Acid 0.8 (0.5-2.0) mmol/L Calcium (8.4-10.2) mg/dL Magnesium (1.6-2.6) mg/dL Total Bilirubin (0.0-1.0) mg/dL AST (5-31) U/L ALT (0-31) U/L Alkaline Phosphatase (39-117) U/L Troponin I High Sens (<3.5-17.0) ng/L B-Natriuretic Peptide (<100) pg/mL Total Protein (6.5-8.0) g/dL Albumin (3.5-5.0) g/dL Procalcitonin ng/mL Urine Color Yellow Urine Appearance Clear Urine pH 6.0 (5.0-9.0) Ur Specific [place] 1.015 (1.005-1.025) Urine Protein 30 (1+) H (Neg-Trace) mg/dL Urine Glucose (UA) Negative (Negative) mg/dL Urine Ketones 40 (Negative) mg/dL Urine Blood Trace H (Negative) Urine Nitrite Negative (Negative) Ur Leukocyte Esterase Negative (Negative) Urine RBC 0-2 (0-2) /HPF Urine WBC 0-5 (0-5) /HPF Ur Squamous Epith Cells 0-2 (0-2) /HPF Urine Bacteria None Seen (None Seen) Hyaline Casts 0-2 (0-2) /LPF Influenza Type A (PCR) (Negative) Influenza Type B (PCR) (Negative) RSV RNA Qual (PCR) (Negative) SARS-CoV-2 RNA (RT-PCR) (Negative) Independent Interpretation I performed an independent interpretation of an: EKG and Plain X-Ray (no consolidation) Interpretation: Rate: 118 Rhythm: sinus tachycardia [place]: normal Normal P waves. Normal VAN. Normal QRS complex. ST T wave : normal no CINDY qTC: normal prior studies: no acute ischemia The study has been interpreted contemporaneously by me. . Radiology Impression Discussion of test interpretation with radiology: I have reviewed the radiologist's reading. Independent Historian Clinical information obtained from an independent historian. History obtained from or confirmed by: Spouse External Record Review External record reviewed: Office record Critical Care Time Critical Care Time Critical Care Time: Yes Total Critical Care Time: 35 Attestation: neb treatments, O2 supplementation and treatment of hypoxia, admission I attest to this time spent taking care of the patient Discharge Plan Discharge Clinical Impression: Influenza A, Hypoxia, Bronchitis Patient Disposition: Admitted As Inpatient Interventions: Admission Worksheet (ED) Last Done: 02/11/23 15:43 Discharge Date/Time: 02/11/23 16:28
[2023-02-11 13:12] LABS: Appearance Urine Clear; Color Urine Yellow; Glucose Urine UA Negative (Negative); Leukocyte Esterase Urine Negative (Negative); Nitrite Urine Negative (Negative); Specific Gravity - Urine 1.015 (1.005-1.025); UMIC TRIGGER UACC YES; Urine Blood Trace (Negative); Urine Ketones 40 mg/dL (Negative); Urine Protein 30 (1+) mg/dL (Neg-Trace)
[2023-02-11 13:16] LABS: Bacteria Urine None Seen (None Seen); Hyaline Casts Urine 0-2 /LPF (0-2); RBC Urine 0-2 /HPF (0-2); Squamous Epithelial Cell Urine 0-2 /HPF (0-2); WBC Urine 0-5 /HPF (0-5)
[2023-02-11 13:28] LABS: Influenza A PCR POSITIVE (Negative); Influenza B PCR NEGATIVE (Negative); Resp Syncy Virus RNA Qual PCR NEGATIVE (Negative); SARS COV2 PCR INHOUSE NEGATIVE (Negative)
[2023-02-11] MEDS: Albuterol Sulfate 2.5 MG, Albuterol Sulfate (0.083%) 2.5 MG 5 MG INHALE (13:41)
[2023-02-11] MEDS: 0.9 % Sodium Chloride 1,000 ML 100 ML IVCONT (13:48)
[2023-02-11] MEDS: methylPREDNISolone Sod Succ 125 MG/2 ML VIAL 60 MG IVPUSH (13:49)
[2023-02-11] MEDS: Acetaminophen 325 MG TABLET 650 MG PO (13:51)
[2023-02-11] MEDS: Oseltamivir Phosphate 75 MG CAPSULE PO ×2 (13:51→21:08)
[2023-02-11] MEDS: Potassium Chloride Packet 20 MEQ PACKET 40 MEQ PO (13:53)
[2023-02-11 14:04] LABS: Lactic Acid 0.8 mmol/L (0.5-2.0)
[2023-02-11] MEDS: cefTRIAXone sodium 1 GM in 0.9 % Sodium Chloride 50 ML IV (14:20)
--- NOTE | 2023-02-11 14:29 | PC.NURSE ---
pt/ aware of plan of care for admission to hospital.
--- NOTE | 2023-02-11 14:39 | PM.IMHP ---
History of Present Illness Date of Service: 02/11/23 Chief Complaint: dyspnea + cough 72yo F with HTN + HLD, hx perforated diverticulitis s/p colectomy/colostomy/ileostomy/reversal, hx heavy smoking prior to quitting 11yr ago, but no chronic lung disease. Presenting with 3 days of worsening dry cough, dyspnea, anorexia, and malaise. Her daughter, who was visiting last week, was ill with a respiratory infection. No fever, nausea, vomiting, or myalgias. Here in ED, noted to be tachycardic + tachypneic + hypoxic. to 87% on RA Wheezing on exam by the ED physician. WBCs 4.4, plts 150, lactate 0.8. Given ceftriaxone + azithromycin + methylprednisolone along with nebulizer treatment. CXR without acute infiltrate. Influenza A PCR positive. Given oseltamivir. Currently saturating 97% on 2L via [place]. Review of Systems Review of Systems: Yes all other systems are reviewed and are negative [facility] Medical History Post-menopausal Screening for breast cancer Family History Father Alzheimers disease Prostate cancer Mother Pulmonary disease Daughter Cholesteatoma Surgical History History of colonoscopy History of incisional hernia repair History of colectomy Social History Housing: House Alcohol intake: current Alcohol intake frequency: holidays/special occasions only Alcohol type: wine Patient Tobacco Use Status: Former Tobacco user Smoked in Last 30 Days: No e-Cigarette/Vaping Use: Never Used Second Hand Smoke Exposure: No Use of substances other than those prescribed or required for medical reasons: No Advance Directives: No Advance Directives Information Provided: No service: No Current occupational status: retired Cognitive needs: No Hearing needs: No Vision needs: Yes (Glasses) Meds Allergies Allergy/AdvReac Type Severity Reaction Status Date / Time barium sulfate Allergy Unknown NAUSEA AND Verified 12/15/22 10:06 [CONTRAST,ORAL] VOMITTING lisinopril Allergy Unknown Cough Verified 12/15/22 10:06 Active Medications: Current Medications Acetaminophen (Acetaminophen 325 Mg Tablet) 650 mg PO Q6H PRN PRN Reason: Pain, Mild (Pain Scale 1-3) Albuterol Sulfate (Albuterol Sulfate (0.083%) 2.5 Mg/3 Ml Vial.Neb) 2.5 mg INHALE Q2H PRN PRN Reason: Shortness of Breath/Wheezing Albuterol/Ipratropium (Albuterol/Iprat 2.5/0.5mg 3 Ml Ampul.Neb) 3 ml INHALE RQ4H WHILE AWAKE SOWMYA Enoxaparin Sodium (Enoxaparin Sodium 40 Mg/0.4 Ml Syringe) 40 mg SUBCUT Q24H SOWMYA Azithromycin 500 mg/ Sodium (Chloride) 250 mls @ 125 mls/hr IV ONCE ONE Stop: 02/11/23 15:24 Sodium Chloride (Ns) 1,000 mls @ 100 mls/hr IVCONT .Q10H SOWMYA Last Admin: 02/11/23 13:48 Dose: 100 mls/hr Methylprednisolone Sodium Succinate (Methylprednisolone Sod Succ 40 Mg/Ml Vial) 40 mg IVPUSH Q12H SOWMYA Ondansetron HCl (Ondansetron Hcl 4 Mg/2 Ml Vial) 4 mg IVPUSH Q8H PRN PRN Reason: Nausea and Vomiting Oseltamivir Phosphate (Oseltamivir Phosphate 75 Mg Capsule) 75 mg PO Q12H SOWMYA Stop: 02/15/23 21:01 Sodium Chloride (0.9 % Sodium Chloride Flush 3 Ml Syringe) 3 ml IVFLUSH QSHIFT [facility] Home Medications Medication Instructions Recorded Confirmed Last Taken Type calcium carbonate 500 mg calcium 500 mg PO DAILY 05/19/21 12/15/22 Unknown History (1,250 mg) chewable tablet (Calcium 500) cholecalciferol (vitamin D3) 50 50 mcg PO DAILY 05/19/21 12/15/22 Unknown History mcg (2,000 unit) capsule omega-3 acid ethyl esters 1 gram 1 cap PO DAILY 05/19/21 12/15/22 Unknown History capsule Physical Exam Vital Signs and Narrative: Vital Signs: Last Vital Signs Temp 98.5 F 02/11/23 14:22 Pulse 119 H 02/11/23 14:22 Resp 28 H 02/11/23 14:22 BP 143/62 H 02/11/23 14:22 Pulse Ox 99 02/11/23 14:22 O2 Del Method Nasal Cannula 02/11/23 14:22 O2 Flow Rate 2 02/11/23 14:22 BMI result Body Mass Index 23.3 Gen: in moderate respiratory distress HEENT: sclera anicteric, moist mucus membranes Neck: supple Lungs: diminished, tachypneic Heart: regular, tachycardic, no murmurs Abd: soft, non-tender, non-distended Ext: no edema Skin: warm/well-perfused Neuro: alert and oriented x3, no focal findings Psych: appropriate affect Results Labs 02/11/23 12:23 02/11/23 12:23 Labs: Laboratory Results - last 24 hr 02/11/23 02/11/23 02/11/23 11:40 12:23 12:25 MCV 86.2 MCH 29.1 MCHC 33.7 RDW 13.0 Plt Count 150 L D MPV 10.3 Immature Gran % (Auto) 0.2 Neut % (Auto) 64.4 Lymph % (Auto) 19.1 L [place] % (Auto) 16.1 H Eos % (Auto) 0.0 Baso % (Auto) 0.2 Lymph # (Auto) 0.8 L [place] # (Auto) 0.7 Eos # (Auto) 0.0 Baso # (Auto) 0.0 Abs Immat Gran (auto) 0.01 Absolute Neuts (auto) 2.8 Absolute Nucleated RBC 0.000 Nucleated RBC % (auto) 0.0 PT 11.5 INR 0.9 APTT 32.6 Anion Gap 13 Estim Creat Clear Calc 67.6 Estimated GFR > 60 POC Glucose 94 Random Glucose 103 Lactic Acid Calcium 9.0 D Magnesium 2.0 Total Bilirubin 0.4 AST 22 ALT 10 Alkaline Phosphatase 78 B-Natriuretic Peptide 34 Total Protein 7.4 Albumin 4.0 Urine Color Urine Appearance Urine pH Ur Specific [place] Urine Protein Urine Glucose (UA) Urine Ketones Urine Blood Urine Nitrite Ur Leukocyte Esterase Urine RBC Urine WBC Ur Squamous Epith Cells Urine Bacteria Hyaline Casts Influenza Type A (PCR) POSITIVE A Influenza Type B (PCR) NEGATIVE RSV RNA Qual (PCR) NEGATIVE SARS-CoV-2 RNA (RT-PCR) NEGATIVE 02/11/23 02/11/23 12:59 13:45 MCV MCH MCHC RDW Plt Count MPV Immature Gran % (Auto) Neut % (Auto) Lymph % (Auto) [place] % (Auto) Eos % (Auto) Baso % (Auto) Lymph # (Auto) [place] # (Auto) Eos # (Auto) Baso # (Auto) Abs Immat Gran (auto) Absolute Neuts (auto) Absolute Nucleated RBC Nucleated RBC % (auto) PT INR APTT Anion Gap Estim Creat Clear Calc Estimated GFR POC Glucose Random Glucose Lactic Acid 0.8 Calcium Magnesium Total Bilirubin AST ALT Alkaline Phosphatase B-Natriuretic Peptide Total Protein Albumin Urine Color Yellow Urine Appearance Clear Urine pH 6.0 Ur Specific [place] 1.015 Urine Protein 30 (1+) H Urine Glucose (UA) Negative Urine Ketones 40 Urine Blood Trace H Urine Nitrite Negative Ur Leukocyte Esterase Negative Urine RBC 0-2 Urine WBC 0-5 Ur Squamous Epith Cells 0-2 Urine Bacteria None Seen Hyaline Casts 0-2 Influenza Type A (PCR) Influenza Type B (PCR) RSV RNA Qual (PCR) SARS-CoV-2 RNA (RT-PCR) Imaging Radiologist's Impressions: Impressions Chest X-Ray 02/11/23 13:00 IMPRESSION: No acute cardiopulmonary disease. Assessment and Plan (1) Hypoxia: Status: Acute (2) Influenza A: Status: Acute Plan 72yo F ex-smoker with HTN + HLD presenting with 3d of cough + dyspnea, found to be hypoxic from influenza A. influenza A - admit to M/S, give O2 as below, give oseltamivir x5d, continue NS acute hypoxic respiratory failure - supplemental O2, wean as tolerated - question of undiagnosed chronic lung disease. will give steroids, nebs. should have PFTs as outpt HTN - HCTZ + valsartan HLD - statin VTE ppx - LMWH dispo - eventual home code status - DNR/DNI per pt and I anticipate that the patient will stay at least 2 midnights as an inpatient in the hospital due to the above reasons. It is neither reasonable nor safe to care for them in a less acute setting. Quality Stroke Does the patient have a stroke diagnosis?: No VTE Prior VTE?: No VTE Risk Level:: Medical - moderate - high VTE Device Contraindication: N/A - Device Ordered VTE Drug Contraindication: N/A - Med Ordered
--- NOTE | 2023-02-11 14:39 | PC.NURSE ---
PT SEEN BY DR. MCKEE, PT/ AWARE OF PLAN OF CARE.
[2023-02-11 15:00] LABS: Procalcitonin 0.02 ng/mL
[2023-02-11] MEDS: Enoxaparin Sodium 40 MG/0.4 ML SYRINGE SUBCUT (15:04)
[2023-02-11] MEDS: Azithromycin 500 MG in 0.9 % Sodium Chloride 250 ML 125 MG IV (15:04)
[2023-02-11] MEDS: Albuterol/Iprat 2.5/0.5MG 3 ML AMPUL.NEB INHALE (15:16)
[2023-02-11] MEDS: 0.9 % Sodium Chloride Flush 3 ML SYRINGE IVFLUSH (17:12)
--- NOTE | 2023-02-11 17:17 | PHA.MEDREC ---
Pharmacy Consult ? Medication Reconciliation Pharmacy has completed the medication reconciliation. Patient knew her medications. She did mention she isnt as compliant as she should be with her HCTZ due to excessive bathroom use
[2023-02-11] MEDS: methylPREDNISolone Sod Succ 40 MG/ML VIAL IVPUSH (21:07)
[2023-02-12] VITALS (8 sets, daily range): BP systolic 142–160; BP diastolic 65–82; PULSE 78–114; RESP 16–18; TEMP 36.1–37.2; O2SAT 92–100
[2023-02-12] MEDS: 0.9 % Sodium Chloride 1,000 ML 100 ML IVCONT ×3 (01:30→20:16)
[2023-02-12] MEDS: Albuterol/Iprat 2.5/0.5MG 3 ML AMPUL.NEB INHALE ×4 (07:43→19:44)
[2023-02-12] MEDS: methylPREDNISolone Sod Succ 40 MG/ML VIAL IVPUSH (08:29)
[2023-02-12] MEDS: Oseltamivir Phosphate 75 MG CAPSULE PO ×2 (08:30→20:11)
[2023-02-12 10:18] LABS: Hemoglobin 12.9 g/dl (12.0-16.0); Mean Corpuscular HGB Conc 33.1 g/dl (31.0-35.0); Mean Corpuscular Hemoglobin 29.1 pg (27.0-33.0); Mean Platelet Volume 10.6 fL (9.4-12.3); Platelet Count 142 X10*3/uL (160-400); Red Blood Count 4.43 X10*6/uL (4.20-5.50); Red Cell Distribution Width 13.2 % (11.0-16.0); White Blood Count 6.3 X10*3/uL (4.8-10.8)
[2023-02-12 10:25] LABS: Venous Blood Gas Refer to POC result
[2023-02-12 10:26] LABS: VBG HCO3 30 mmol/L (22-26); VBG pCO2 49 mmHg; VBG pO2 35 mmHg
[2023-02-12 10:52] LABS: Anion Gap 13 (12-20); Blood Urea Nitrogen 10 mg/dL (9-16); Calcium 8.2 mg/dL (8.4-10.2); Carbon Dioxide 28 mmol/L (22-29); Chloride 105 mmol/L (96-108); Creatinine Clr Calc Pharmacy 77.4; Estimated Glomerular Filt Rate > 60; Glucose Random 162 mg/dL (60-115); Potassium 3.6 mmol/L (3.3-5.1); Sodium 142 mmol/L (135-145)
--- NOTE | 2023-02-12 13:29 | P.PNIM_ITS ---
Subjective Subjective Date of Service: 02/12/23 Interval History: No acute events overnight. Still short of breath with minimal exertion Review of Systems Denies chest pain Denies shortness of breath Denies nausea diarrhea Denies fever chills Physical Exam 2 Vital Signs: Vital Signs: Last Vital Signs Temp 97.0 F 02/12/23 08:00 Pulse 92 02/12/23 11:47 Resp 18 02/12/23 11:47 BP 160/80 H 02/12/23 08:00 Pulse Ox 94 02/12/23 08:00 O2 Del Method Room Air 02/12/23 08:00 O2 Flow Rate 2 02/12/23 04:00 BMI result Body Mass Index 23.3 Const: Other: Awake alert no acute distress Resp: Other: Diminished at bases with expiratory wheezes throughout lower stock Cardio: Other: No S4; positive S1-S2; no S3 murmurs rubs or gallops GI: Other: Soft nontender nondistended normoactive bowel sounds Neuro: Other: Cranial nerves 2-12 grossly intact as tested. Motor is 5/5 all extremities. Sensation is intact. Cognition appropriate Extrem: Other: No edema bilaterally Objective Data Active Medications Acetaminophen (Acetaminophen 325 Mg Tablet) 650 mg PO Q6H PRN PRN Reason: Pain, Mild (Pain Scale 1-3) Albuterol Sulfate (Albuterol Sulfate (0.083%) 2.5 Mg/3 Ml Vial.Neb) 2.5 mg INHALE Q2H PRN PRN Reason: Shortness of Breath/Wheezing Albuterol/Ipratropium (Albuterol/Iprat 2.5/0.5mg 3 Ml Ampul.Neb) 3 ml INHALE RQ4H WHILE AWAKE REPLACED BY [facility] Last Admin: 02/12/23 11:45 Dose: 3 ml Documented By: FEROZ Enoxaparin Sodium (Enoxaparin Sodium 40 Mg/0.4 Ml Syringe) 40 mg SUBCUT Q24H REPLACED BY [facility] Last Admin: 02/11/23 15:04 Dose: 40 mg Documented By: JOHN Sodium Chloride (Ns) 1,000 mls @ 100 mls/hr IVCONT .Q10H REPLACED BY [facility] Last Admin: 02/12/23 10:40 Dose: 100 mls/hr Documented By: HARVEY Ondansetron HCl (Ondansetron Hcl 4 Mg/2 Ml Vial) 4 mg IVPUSH Q8H PRN PRN Reason: Nausea and Vomiting Oseltamivir Phosphate (Oseltamivir Phosphate 75 Mg Capsule) 75 mg PO Q12H REPLACED BY [facility] Stop: 02/15/23 21:01 Last Admin: 02/12/23 08:30 Dose: 75 mg Documented By: HARVEY Sodium Chloride (0.9 % Sodium Chloride Flush 3 Ml Syringe) 3 ml IVFLUSH QSHIFT REPLACED BY [facility] Last Admin: 02/12/23 08:33 Dose: Not Given Documented By: HARVEY Non-Admin Reason: IV Running Labs 02/12/23 09:58 02/12/23 09:58 Labs: Laboratory Results - last 24 hr 02/11/23 02/11/23 02/12/23 12: 13:45 09:58 MCV 88.0 MCH 29.1 MCHC 33.1 RDW 13.2 Plt Count 142 L MPV 10.6 Absolute Nucleated RBC 0.000 Nucleated RBC % (auto) 0.0 VBG pH VBG pCO2 VBG pO2 VBG HCO3 VBG O2 Saturation VBG Base Excess Anion Gap 13 Estim Creat Clear Calc 77.4 Estimated GFR > 60 Random Glucose 162 H Lactic Acid 0.8 Calcium 8.2 L D Magnesium 2.0 Procalcitonin 0.02 02/12/23 10:14 MCV MCH MCHC RDW Plt Count MPV Absolute Nucleated RBC Nucleated RBC % (auto) VBG pH 7.40 VBG pCO2 49 VBG pO2 35 VBG HCO3 30 H VBG O2 Saturation 59.0 VBG Base Excess 5.0 Anion Gap Estim Creat Clear Calc Estimated GFR Random Glucose Lactic Acid Calcium Magnesium Procalcitonin Assessment and Plan (1) Bronchitis: Status: Acute (2) Influenza A: Status: Acute (3) HTN (hypertension): Status: Acute Plan 72yo F ex-smoker with HTN/HLD presenting with 3d of cough + dyspnea, found to be hypoxic from influenza A. 1.COPD exacerbation secondary to influenza A -oseltamivir x5d -continue pulse dose steroids -DuoNebs q.4 hours while awake -azithromycin as ordered 1.HTN -acceptable control on current therapies -adjust as indicated LMWH DNR DNI Patient will require ongoing hospitalization for IV steroids to treat COPD exacerbation Quality Stroke Does the patient have a stroke diagnosis?: No VTE Prior VTE?: No VTE Risk Level:: Medical - moderate - high VTE Device Contraindication: N/A - Device Ordered VTE Drug Contraindication: N/A - Med Ordered
--- NOTE | 2023-02-12 13:36 | MHC.CM.PN ---
left message for pt and geoffrey to complete intake likely plan is dc home no servies
[2023-02-12] MEDS: methylPREDNISolone Sod Succ 125 MG/2 ML VIAL 60 MG IVPUSH ×2 (14:39→20:10)
[2023-02-12] MEDS: Enoxaparin Sodium 40 MG/0.4 ML SYRINGE SUBCUT (15:01)
[2023-02-12] MEDS: Atorvastatin Calcium 20 MG TABLET PO (20:11)
[2023-02-12] MEDS: Valsartan 160 MG TABLET PO (20:11)
[2023-02-13] VITALS (10 sets, daily range): BP systolic 140–196; BP diastolic 74–86; PULSE 86–110; RESP 16–20; TEMP 36.1–36.8; O2SAT 91–94
[2023-02-13] MEDS: methylPREDNISolone Sod Succ 125 MG/2 ML VIAL 60 MG IVPUSH ×4 (02:13→19:28)
[2023-02-13] MEDS: 0.9 % Sodium Chloride 1,000 ML 100 ML IVCONT (05:49)
[2023-02-13] MEDS: Albuterol/Iprat 2.5/0.5MG 3 ML AMPUL.NEB INHALE ×4 (08:56→19:52)
[2023-02-13] MEDS: 0.9 % Sodium Chloride Flush 3 ML SYRINGE IVFLUSH ×3 (09:31→23:38)
[2023-02-13] MEDS: Oseltamivir Phosphate 75 MG CAPSULE PO ×2 (09:32→19:30)
[2023-02-13] MEDS: hydroCHLOROthiazide 12.5 MG TABLET PO (09:32)
[2023-02-13] MEDS: hydrOXYzine HCL 25 MG TABLET PO ×3 (11:34→23:38)
[2023-02-13] MEDS: Valsartan 160 MG TABLET PO ×2 (12:10→19:30)
--- NOTE | 2023-02-13 13:45 | P.PNIM_ITS ---
Subjective Subjective Date of Service: 02/13/23 Interval History: Still short of breath with exertion. No significant improvement since admit Review of Systems Denies chest pain Denies shortness of breath Denies nausea diarrhea Denies fever chills Physical Exam 2 Vital Signs: Vital Signs: Last Vital Signs Temp 97.4 F 02/13/23 07:45 Pulse 94 02/13/23 11:27 Resp 18 02/13/23 11:27 BP 196/86 H 02/13/23 10:27 Pulse Ox 91 L 02/13/23 07:45 O2 Del Method Room Air 02/13/23 07:45 O2 Flow Rate 2 02/12/23 04:00 BMI result Body Mass Index 23.3 Const: Other: Awake alert no acute distress Resp: Other: Diminished at bases with expiratory wheezes throughout lower stock Cardio: Other: No S4; positive S1-S2; no S3 murmurs rubs or gallops GI: Other: Soft nontender nondistended normoactive bowel sounds Neuro: Other: Cranial nerves 2-12 grossly intact as tested. Motor is 5/5 all extremities. Sensation is intact. Cognition appropriate Extrem: Other: No edema bilaterally Objective Data Active Medications Acetaminophen (Acetaminophen 325 Mg Tablet) 650 mg PO Q6H PRN PRN Reason: Pain, Mild (Pain Scale 1-3) Albuterol Sulfate (Albuterol Sulfate (0.083%) 2.5 Mg/3 Ml Vial.Neb) 2.5 mg INHALE Q2H PRN PRN Reason: Shortness of Breath/Wheezing Albuterol/Ipratropium (Albuterol/Iprat 2.5/0.5mg 3 Ml Ampul.Neb) 3 ml INHALE RQ4H WHILE AWAKE COUNT INCLUDES THE [facility] Last Admin: 02/13/23 11:26 Dose: 3 ml Documented By: BERENICE Atorvastatin Calcium (Atorvastatin Calcium 20 Mg Tablet) 20 mg PO BEDTIME [facility] Last Admin: 02/12/23 20:11 Dose: 20 mg Documented By: MARIAH Enoxaparin Sodium (Enoxaparin Sodium 40 Mg/0.4 Ml Syringe) 40 mg SUBCUT Q24H [facility] Last Admin: 02/12/23 15:01 Dose: 40 mg Documented By: DOMINGO Hydrochlorothiazide (Hydrochlorothiazide 12.5 Mg Tablet) 12.5 mg PO DAILY COUNT INCLUDES THE [facility]; Protocol Last Admin: 02/13/23 09:32 Dose: 12.5 mg Documented By: GAIL Hydroxyzine HCl (Hydroxyzine Hcl 25 Mg Tablet) 25 mg PO Q6H PRN PRN Reason: anxiety/restlessness Last Admin: 02/13/23 11:34 Dose: 25 mg Documented By: GAIL Methylprednisolone Sodium Succinate (Methylprednisolone Sod Succ 125 Mg/2 Ml Vial) 60 mg IVPUSH Q6H COUNT INCLUDES THE [facility] Last Admin: 02/13/23 09:31 Dose: 60 mg Documented By: GAIL Ondansetron HCl (Ondansetron Hcl 4 Mg/2 Ml Vial) 4 mg IVPUSH Q8H PRN PRN Reason: Nausea and Vomiting Oseltamivir Phosphate (Oseltamivir Phosphate 75 Mg Capsule) 75 mg PO Q12H COUNT INCLUDES THE [facility] Stop: 02/15/23 21:01 Last Admin: 02/13/23 09:32 Dose: 75 mg Documented By: GAIL Sodium Chloride (0.9 % Sodium Chloride Flush 3 Ml Syringe) 3 ml [place]USH [place] Last Admin: 02/13/23 09:31 Dose: 3 ml Documented By: GAIL Valsartan (Valsartan 160 Mg Tablet) 160 mg PO BID COUNT INCLUDES THE [facility]; Protocol Last Admin: 02/13/23 12:10 Dose: 160 mg Documented By: GAIL Labs 02/12/23 09:58 02/12/23 09:58 Microbiology Microbiology Results: Microbiology 02/11/23 14:09 Blood Culture - Preliminary Blood - Venous No growth after 24 hours. 02/11/23 13:46 Blood Culture - Preliminary Blood - Venous No growth after 24 hours. Assessment and Plan (1) Influenza A: Status: Acute (2) HTN (hypertension): Status: Acute Plan 72yo F ex-smoker with HTN/HLD presenting with 3d of cough + dyspnea, found to be hypoxic from influenza A. 1.COPD exacerbation secondary to influenza A -oseltamivir x5d (last dose 02/15/2023) -continue pulse dose steroids -DuoNebs q.4 hours while awake -azithromycin as ordered 1.HTN - -adjust as indicated LMWH DNR DNI Patient will require ongoing hospitalization for IV steroids to treat COPD exacerbation Quality Stroke Does the patient have a stroke diagnosis?: No VTE Prior VTE?: No VTE Risk Level:: Medical - moderate - high VTE Device Contraindication: N/A - Device Ordered VTE Drug Contraindication: N/A - Med Ordered
[2023-02-13] MEDS: Enoxaparin Sodium 40 MG/0.4 ML SYRINGE SUBCUT (15:25)
--- NOTE | 2023-02-13 16:01 | PC.NURSE ---
patient refused alarms encouraged to ask for assistance
--- NOTE | 2023-02-13 16:37 | PC.NURSE ---
BP elevated 176/84 manually,pulse 90 ,patient asymptomatic,Dr. Patterson notified
[2023-02-13] MEDS: Atorvastatin Calcium 20 MG TABLET PO (19:29)
[2023-02-14] MEDS: methylPREDNISolone Sod Succ 125 MG/2 ML VIAL 60 MG IVPUSH ×2 (01:40→07:40)
[2023-02-14 03:42] VITALS: BP 170/82; PULSE 71; RESP 18; TEMP 36.6; O2SAT 93
[2023-02-14] MEDS: hydrOXYzine HCL 25 MG TABLET PO ×2 (05:38→13:11)
[2023-02-14 07:22] VITALS: BP 192/96; PULSE 90; RESP 20; TEMP 36.1; O2SAT 93
[2023-02-14] MEDS: Valsartan 160 MG TABLET PO (07:41)
[2023-02-14] MEDS: hydroCHLOROthiazide 12.5 MG TABLET PO (07:41)
[2023-02-14] MEDS: Oseltamivir Phosphate 75 MG CAPSULE PO (07:41)
[2023-02-14] MEDS: 0.9 % Sodium Chloride Flush 3 ML SYRINGE IVFLUSH (07:45)
[2023-02-14] MEDS: Albuterol/Iprat 2.5/0.5MG 3 ML AMPUL.NEB INHALE ×2 (08:18→12:30)
[2023-02-14 08:19] VITALS: PULSE 88; RESP 18; O2SAT 94
[2023-02-14 10:54] VITALS: BP 180/73; PULSE 93; O2SAT 94
--- NOTE | 2023-02-14 12:06 | PM.DS ---
DS: Providers Provider Date of Service: 02/14/23 Date of admission: 02/11/23 14:50 Date of discharge: 02/14/23 Primary care physician: Odell Galan PA-C DS: Diagnosis Discharge Diagnosis (1) Influenza A: Status: Acute (2) HTN (hypertension): Status: Acute DS: Summary Hospital Course Hospital Course: 2yo F with HTN + HLD, hx perforated diverticulitis s/p colectomy/colostomy/ileostomy/reversal, hx heavy smoking prior to quitting 11yr ago, but no chronic lung disease. Presenting with 3 days of worsening dry cough, dyspnea, anorexia, and malaise. Her daughter, who was visiting last week, was ill with a respiratory infection. No fever, nausea, vomiting, or myalgias. Here in ED, noted to be tachycardic + tachypneic + hypoxic. to 87% on RA Wheezing on exam by the ED physician. WBCs 4.4, plts 150, lactate 0.8. Given ceftriaxone + azithromycin + methylprednisolone along with nebulizer treatment. CXR without acute infiltrate. Influenza A PCR positive. Given oseltamivir. Currently saturating 97% on 2L via NC. Hospital course Admitted to general medical floor and maintained on DuoNebs and pulse dose steroids. She was also started on Tamiflu. Over the course of the next 72 hours she progressed to the point where she is feeling markedly improved and wishes to be discharged. She will be discharged on a prednisone taper and given an albuterol inhaler. She can follow-up with PCP as scheduled. Of note her pressures were elevated and her valsartan was increased to 160 b.i.d.. Time Attestation Discharge coordination time: Greater than 30 minutes Quality: Safe Use of Opioids Does Pt have an Active Cancer Diagnosis on the Problem List?: No Quality: Stroke Does the patient have a stroke diagnosis?: No Physical Exam Vital Signs: Vital Signs: Last Vital Signs Temp 96.9 F 02/14/23 07:22 Pulse 93 02/14/23 10:54 Resp 18 02/14/23 08:19 BP 180/73 H 02/14/23 10:54 Pulse Ox 94 02/14/23 10:54 O2 Del Method Room Air 02/14/23 10:54 O2 Flow Rate 2 02/12/23 04:00 BMI result Body Mass Index 23.3 Const: Other: Awake alert no acute distress Resp: Other: Good aeration to bases. Scant expiratory wheezes throughout Cardio: Other: No S4; positive S1-S2; no S3 murmurs rubs or gallops GI: Other: Soft nontender nondistended normoactive bowel sounds Neuro: Other: Cranial nerves 2-12 grossly intact as tested. Motor is 5/5 all extremities. Sensation is intact. Cognition appropriate Extrem: Other: No edema bilaterally DS: Data Data Completed and Pending Labs on day of discharge: Preliminary micro results at discharge 02/11/23 14:09 Blood Culture - Preliminary Blood - Venous No growth after 48 hours. 02/11/23 13:46 Blood Culture - Preliminary Blood - Venous No growth after 48 hours. Discharge Plan Discharge Anticipated Discharge Date/Time: 02/14/23 11:59 Patient Disposition: Home Health Service Discharge Diagnosis: Hypoxia secondary to influenza Referrals: Odell Galan PA-C [Primary Care Provider] - 1 Week Discharge Medications: New hydroxyzine HCl 25 mg Tablet 25 mg PO Q6H PRN (Reason: Anxiety/Restlessness) Qty: 30 1RF valsartan 160 mg Tablet 160 mg PO BID Qty: 60 2RF Protocol: Hold for SBP< HOLD for SBP < : 90 prednisone 20 mg tablet See Rx Instructions .Route .COMPLEX Qty: 18 0RF Rx Instructions: 20 mg orally; 3 tabs daily for 3 days, 2 tabs daily for 3 days, 1 tab daily for 3 days albuterol sulfate [Ventolin HFA] 90 mcg/actuation HFA aerosol inhaler 1 inh inhalation Q6H Qty: 8.5 2RF Continued atorvastatin 20 mg tablet 20 mg PO BEDTIME hydrochlorothiazide 12.5 mg tablet 12.5 mg PO DAILY 90 Days Qty: 90 1RF Discontinued valsartan 160 mg tablet 160 mg PO BEDTIME Discharge Orders: Discharge Order (Routine); Ordered 02/14/23 Ordered By: Luis Patterson Diet: Advance to usual diet Activity on Discharge: As tolerated Stand Alone Forms: Patient Portal Discharge page Care Plan Goals: Resume all pre-hospital medicines. Health Concerns: Your valsartan has been increased to twice daily. Follow-up with your PCP as scheduled Plan of Treatment: Reason prescribed an albuterol inhaler; prednisone taper as Assessment: See discharge summary
--- NOTE | 2023-02-14 12:24 | W.MHC.F2F ---
Service Date Service Date: 02/14/23 Encounter Date of encounter: 02/14/23 Encounter: Acute hospitalization Reasons for Services Signs and symptoms assessed: Respiratory status with O2 saturation Reason for detention: medication management, medication treatment and other Homebound: Leaving the home is medically contraindicated at this time without the asist of a device and/or another person due th the listed conditions above and below. Reason homebound: unsteady gait / fall risk and shortness of breath at rest Homebound supporting statement: Respiratory evaluation Certification: Based on the above findings, I certify that this patient is confined to the home and needs intermittent detention care, physical therapy and/or speech therapy, or continues to need occupational therapy. The patient is under my care, and I have initiated the establishment of the plan of care. The patient will be followed by a physician who will periodically review the plan of care. Time Spent With Patient Time: Total time managing care of this patient today ____ minutes.
[2023-02-14 12:31] VITALS: PULSE 92; RESP 18; O2SAT 92
--- NOTE | 2023-02-14 14:47 | MHC.CM.PN ---
PT TO DC HOME TODAY SHE IS DECLINING [facility] SHE HAS ARRANGED TRANSPORT
== END 2023-02-14 13:56 | disposition home or self-care (01) | DRG 193 ==
LOC: HO.ED 13:50 → HO.EDOVER 14:51 → HO.S3 15:40
PROVIDERS: Physician Assistant Medical; Admitting Provider Family Medicine; Emergency Provider Emergency Medicine; PCP Physician Assistant; Visit Provider Hospitalist
DX: J10.1 Influenza due to other identified influenza virus with other respiratory manifestations (principal); J96.01 Acute respiratory failure with hypoxia; I10 Essential (primary) hypertension; E78.5 Hyperlipidemia, unspecified; Z66 Do not resuscitate; Z20.822 Contact with and (suspected) exposure to COVID-19; Z87.891 Personal history of nicotine dependence; Z79.899 Other long term (current) drug therapy
CPT/HCPCS: 0241U; 36415; 71046; 80048; 80053; 81001; 82803; 82947; 83605; 83735; 83880; 84145; 84484; 85025; 85027; 85610; 85730; 87040; 93005; 94640; 99285; J0456; J0696; J1650; J2920; J2930

== ENCOUNTER → 2023-02-11 11:38 | Outpatient (BNV) | payer MEDICARE, SELFPAY | PROVIDERS: Admitting Provider Family Medicine; Emergency Provider Emergency Medicine; PCP Physician Assistant; Visit Provider Internal Medicine Cardiovascular Disease | DX: R00.0 Tachycardia, unspecified (principal) | CPT/HCPCS: 93010 ==

== ENCOUNTER → 2023-02-11 12:28 | Outpatient (BNV) | payer MEDICARE, SELFPAY | PROVIDERS: Emergency Provider Emergency Medicine; PCP Physician Assistant; Visit Provider Family Medicine | DX: J10.1 Influenza due to other identified influenza virus with other respiratory manifestations (principal); J44.1 Chronic obstructive pulmonary disease with (acute) exacerbation; I10 Essential (primary) hypertension | CPT/HCPCS: 99223; 99233; 99239; G0180 ==

== ENCOUNTER 2023-03-10 10:00 | Outpatient (AMB) | payer MEDICARE, SELFPAY ==
[2023-03-10 10:01] VITALS: BP 132/70; PULSE 142; O2SAT 98; BMI 40.2
--- NOTE | 2023-03-10 10:01 | A.OFFPC_ITS ---
Vital Signs 03/10/23 10:01 03/10/23 10:23 Height 5 ft 4 in Weight 106.141 kg BMI 40.2 BP 132/70 Blood Pressure Location Lt brachial Position Sitting Pulse 142 H 98 Pulse Source Pulse Oximeter Pulse Oximetry (%) 98 Oxygen Delivery Method Room Air Intake Visit Reasons: [facility] 02/14 FLU Maternity Floor Supervisor Required: No Film Developer: Not Required per policy Accompanied by: Self / Same As Patient Allergies barium sulfate [CONTRAST,ORAL] Allergy (Unknown, Verified 03/10/23 10:02) NAUSEA AND VOMITTING lisinopril Allergy (Unknown, Verified 03/10/23 10:02) Cough Tobacco use date assessed: 06/17/22 Fall risk assessment: No Falls in past year Last assessed Fall Risk: 03/10/23 Dental Screening Dental Screen Date: 03/10/23 Did you have a dental visit in the last 12 months?: Yes Did you have a dental problem in the last 6 months where you did not have access to dental care?: No Was dental information given to patient?: Patient has dentist HPI HPI Comments History of Present Illness Details 72-year-old female with history of hyper tension, hyperlipidemia, history perforated diverticulitis s/p colectomy/colostomy / ileostomy/reversal, history heavy smoking prior to quitting 11 years ago but no known chronic lung disease presents to the office today for hospital discharge follow-up. She was admitted to [facility] from 02/11 -02/14 for influenza a with acute hypoxemic respiratory failure. There was suspicion for undiagnosed chronic lung disease no chest x-ray was negative for any acute infiltrate. She was positive for influenza a on PCR and started on Tamiflu. She also received pulse dose steroids and nebulizer treatments. She was successfully weaned from supplemental O2 to room air. Hospital course was complicated by uncontrolled hypertension likely in the setting of steroid use. Her valsartan 160 mg was increased to twice daily and she continue hydrochlorothiazide 12.5 mg daily. She has been monitoring her blood pressures at home which have been quite low, at times as low as 67/45. Denies any associated symptoms including lightheadedness, syncope, palpitations, shortness of breath, chest pain. She has discontinued her evening dose of valsartan that had been prescribed in the hospital but is still taking 160 mg valsartan every morning and hydrochlorothiazide 12.5 mg every morning. She was discharged on prednisone taper which she completed as prescribed and also completed course of prednisone. She also tells me that she has been taking her albuterol inhaler every 6 hours scheduled rather than as needed. Does not feel at this is helping her and denies any shortness of breath or wheezing. Overall, labs during hospitalization were unremarkable. On day of arrival, she did have a mild hypokalemia of 3.2 which was repleted and was likely secondary to albuterol use. Potassium level normal at 3.6 on day of discharge. Blood cultures negative. [facility] Medical History (Updated 03/14/23 @ 15:54 by OWEN Lua) HTN (hypertension) Hypoxia Influenza A Post-menopausal Screening for breast cancer Surgical History History of colonoscopy History of incisional hernia repair History of colectomy Family History Father Alzheimers disease Prostate cancer Mother Pulmonary disease Daughter Cholesteatoma Social History Household Members: Spouse Housing: House Do you presently have visiting nurse or other home services: No Alcohol intake: current Alcohol intake frequency: holidays/special occasions only Alcohol type: wine Patient Tobacco Use Status: Former Tobacco user e-Cigarette/Vaping Use: Never Used Second Hand Smoke Exposure: No service: No Current occupational status: retired Cognitive needs: No Hearing needs: No Vision needs: Yes (Glasses) Questionnaire Thrive Questionnaire Date Thrive assessed: 02/12/23 FREDERICK-7 AMB Questionnaire FREDERICK-7 Date FREDERICK - 7 assessed: 06/17/22 Source: Developed by Drs. Reese Barrett, Pamela Hollis, Ry Woods and colleagues, with an educational kelly from [email or web address]. Physical exam (Primary Care) Vital Signs: Last Vital Signs Pulse 98 03/10/23 10:23 BP 132/70 03/10/23 10:01 Pulse Ox 98 03/10/23 10:01 Oxygen Delivery Method Room Air 03/10/23 10:01 BMI result Body Mass Index 40.2 Tobacco/Smoking Status: Tobacco use Status Tobacco use date assessed 06/17/22 03/10/23 10:09 Patient Tobacco Use Status Former Tobacco user 03/10/23 10:09 e-Cigarette/Vaping Use Never Used 03/10/23 10:09 Thrive Assessment: Date of Thrive Assessment Date Thrive assessed 02/12/23 03/10/23 10:09 Const Other: Constitutional - Awake and Alert, No apparent distress Eyes - PERRLA, EOMI Cardiovascular - S1S2, RRR, No edema Respiratory - Normal lung expansion, Normal respiratory effort, No respiratory distress, CTA bilaterally Gastrointestinal - NT / ND; +BS; No rebound or guarding Extremities - no calf tenderness bilaterally, no swelling Skin - Warm/Dry Neurological - Alert & oriented x3, tremulous Psychological - Appropriate affect Results Reviewed Results Reviewed: CBC, BMP, respiratory panel, chest x-ray, history and physical, discharge summary Assessment and Plan Assessment & Plan (1) Former heavy tobacco smoker: Code(s): Z87.891 - Personal history of nicotine dependence Plan: given history of heavy tobacco abuse in remission with greater than 40 pack- year history and recent hospitalization with influenza and acute hypoxemic respiratory failure, there is suspicion for underlying chronic lung disease. Will refer for pulmonary function testing (2) Acute hypoxemic respiratory failure: Code(s): J96.01 - Acute respiratory failure with hypoxia Plan: secondary to influenza A. Resolved (3) Chronic lung disease: Code(s): J98.4 - Other disorders of lung Plan: suspected given recent acute illness requiring supplemental O2 for acute hypoxemic respiratory failure secondary to influenza As well as pulse dose steroids and nebulizer treatments with significant history of cigarette smoking. Referred for PFTs. Advised to only use albuterol as needed for Shortness of breath and wheezing, not scheduled every 6 hours as this is likely contributing to her tachycardia and tremulousness. Heart rate improved to 98 on recheck. (4) Influenza A: Code(s): J10.1 - Influenza due to other identified influenza virus with other respiratory manifestations Plan: resolved. Treated inpatient with Tamiflu. Currently asymptomatic (5) HTN (hypertension): Code(s): I10 - Essential (primary) hypertension Qualifiers: Hypertension type: essential hypertension Qualified Code(s): I10 - Essential (primary) hypertension Plan: blood pressure controlled in the office today at 132/70 but patient endorses white coat hypertension chronically. She shows me blood pressure readings from home which are mostly borderline hypotensive with multiple hypotensive readings. She denies symptoms during periods of hypotension. She should continue only taking valsartan 160 mg once daily, not twice daily. I have also advised her to discontinue the hydrochlorothiazide 12.5 mg daily. She is advised to check her blood pressure at home with goal being less than 140/90. However she should call the office if systolic blood pressures are less than 90. Low sodium diet Orders: Orders PFT pulmonary function test Today J96.01 - Acute respiratory failure with hypoxia, J98.4 - Other disorders of lung, Z87.891 - Personal history of nicotine dependence Medications: Changed From valsartan 160 mg See Protocol PO BID 60 tabs 2RF To valsartan 160 mg See Protocol PO DAILY 60 tabs 2RF From albuterol sulfate 90 mcg/actuation (Ventolin HFA) 1 inh inhalation Q6H 8.5 grams 2RF To albuterol sulfate 90 mcg/actuation (Ventolin HFA) 1 inh inhalation Q6H PRN 8.5 grams 2RF shortness of breath or wheezing Refilled hydroxyzine HCl 25 mg PO Q6H PRN 30 tabs 1RF Anxiety/Restlessness Discontinued prednisone Discontinued Reason: Doctor's Order 20 mg orally; 3 tabs daily for 3 days, 2 tabs daily for 3 days, 1 tab daily for 3 days 18 tabs 0RF hydrochlorothiazide Discontinued Reason: Doctor's Order 12.5 mg PO DAILY 90 days 90 tabs 1RF I10 - Essential (primary) hypertension Coding Level of Care Code Est Pt Level 5 (37991) Diagnoses Former heavy tobacco smoker Z87.891 Acute hypoxemic respiratory failure J96.01 Chronic lung disease J98.4 Influenza A J10.1 Essential hypertension I10 Hypertension type: essential hypertension Time Spent (min) 44 Comment reviewed as above, time with pt and time on documentation
[2023-03-10 10:23] VITALS: PULSE 98
== END 2023-03-10 10:37 | disposition home or self-care (01) ==
PROVIDERS: PCP Physician Assistant; Visit Provider Physician Assistant
DX: J96.01 Acute respiratory failure with hypoxia (principal); Z87.891 Personal history of nicotine dependence; J98.4 Other disorders of lung; J10.1 Influenza due to other identified influenza virus with other respiratory manifestations; I10 Essential (primary) hypertension
CPT/HCPCS: 99215

== ENCOUNTER 2023-06-10 06:16 | Outpatient (REF) | payer MEDICARE, SELFPAY ==
[2023-06-10 07:57] LABS: Hematocrit 48.3 % (37.0-47.0); Hemoglobin 15.9 g/dl (12.0-16.0); Mean Corpuscular HGB Conc 32.9 g/dl (31.0-35.0); Mean Corpuscular Hemoglobin 29.4 pg (27.0-33.0); Mean Corpuscular Volume 89.3 fL (80.0-98.0); Mean Platelet Volume 11.9 fL (9.4-12.3); Platelet Count 189 X10*3/uL (160-400); Red Blood Count 5.41 X10*6/uL (4.20-5.50); Red Cell Distribution Width 13.2 % (11.0-16.0); White Blood Count 10.8 X10*3/uL (4.8-10.8)
[2023-06-10 08:04] LABS: Estimated Average Glucose 105 mg/dL; Hemoglobin A1c % 5.3 % (<6.0)
[2023-06-10 08:23] LABS: Alanine Aminotransferase 12 U/L (0-31); Albumin Level 4.3 g/dL (3.5-5.0); Alkaline Phosphatase 104 U/L (39-117); Anion Gap 17 (12-20); Aspartate Amino Transferase 19 U/L (5-31); Bilirubin Total 0.6 mg/dL (0.0-1.0); Blood Urea Nitrogen 15 mg/dL (9-16); Carbon Dioxide 23 mmol/L (22-29); Chloride 104 mmol/L (96-108); Cholesterol 163 mg/dL (<200); Estimated Glomerular Filt Rate 59; Glucose Fasting 121 mg/dL (60-99); HDL Cholesterol 66 mg/dL (>40); LDL Cholesterol Calculated 68 mg/dL (<100); Potassium 4.1 mmol/L (3.3-5.1); Sodium 140 mmol/L (135-145); Total Protein 7.7 g/dL (6.5-8.0); Triglycerides 149 mg/dL (<150)
[2023-06-10 09:55] LABS: Creatinine Urine 79.45 mg/dL; Microalbum/Creatinine Ratio Ur 16.3 ug/mg cr (<30)
== END 2023-06-10 06:17 | disposition home or self-care (01) ==
LOC: HO.LAB 06:16
PROVIDERS: PCP Physician Assistant; Visit Provider Physician Assistant
DX: I10 Essential (primary) hypertension (principal); R73.09 Other abnormal glucose; E78.1 Pure hyperglyceridemia
CPT/HCPCS: 36415; 80053; 80061; 82043; 82570; 83036; 85027

== ENCOUNTER 2023-06-16 10:06 | Outpatient (AMB) | payer MEDICARE, SELFPAY ==
[2023-06-16 10:01] VITALS: BP 172/90; PULSE 108; O2SAT 99; BMI 23.2
--- NOTE | 2023-06-16 10:01 | MHC.PC.OV ---
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 Accompanied by: Self / Same As Patient Allergies barium sulfate [CONTRAST,ORAL] Allergy (Unknown, Verified 06/16/23 10:19) NAUSEA AND VOMITTING lisinopril Allergy (Unknown, Verified 06/16/23 10:19) Cough hydrochlorothiazide Adverse Reaction (Intermediate, Verified 06/16/23 13:05) Urinary frequency Medication List - Last Reconciled 06/16/23 by Odell Galan PA-C albuterol sulfate 90 mcg/actuation (Ventolin HFA) 1 inh inhalation Q6H PRN atorvastatin 20 mg PO DAILY hydroxyzine HCl 25 mg PO Q6H PRN inhalational spacing device (Aerochamber MV spacer) As directed valsartan 160 mg See Protocol PO DAILY Tobacco use date assessed: 06/16/23 Fall risk assessment: No Falls in past year Last assessed Fall Risk: 06/16/23 Dental Screening Dental Screen Date: 06/16/23 Did you have a dental visit in the last 12 months?: No Did you have a dental problem in the last 6 months where you did not have access to dental care?: No Was dental information given to patient?: Patient has dentist HPI f/u HTN/ IGM HPI Details Asmita is a 73? y/o F here today for a follow-up visit. ? Patient has a pmhx significant for HTN, HLD, impaired glucose metabolism. ? .. ? HTN: Blood pressure today in office elevated, does have white coat hypertension to a severe degree.? And heart rates 80s to 100. ?Denies any headaches, chest discomfort, shortness of breath. She return back to using 1 valsartan per day. Blood pressures at home are 110s to 120 systolic. ? .. ? Impaired glucose metabolism: A1c acceptable, patient's fasting blood sugar continues to be elevated. She reports some dietary indiscretion as of late which can be attributed to her elevated blood sugars. ? .. ? Hyperlipidemia: Most recent lipid panel showing excellent control over her total cholesterol, LDL and triglycerides. She continues on low-dose statin therapy. Laboratory Tests 06/10/23 06/10/23 06/10/23 06:34 06:34 Unknown RBC 5.41 D Creatinine 0.93 Fasting Glucose 121 H Hemoglobin A1c % 5.3 Triglycerides 149 Cholesterol 163 Urine Microalbumin 13.0 PFSH Medical History HTN (hypertension) Hypoxia Influenza A Post-menopausal Screening for breast cancer Surgical History History of colonoscopy History of incisional hernia repair History of colectomy Family History Father Alzheimers disease Prostate cancer Mother Pulmonary disease Daughter Cholesteatoma Social History Household Members: Spouse Housing: House Do you presently have visiting nurse or other home services: No Alcohol intake: current Alcohol intake frequency: holidays/special occasions only Alcohol type: wine Patient Tobacco Use Status: Former Tobacco user e-Cigarette/Vaping Use: Never Used Second Hand Smoke Exposure: No service: No Current occupational status: retired Cognitive needs: No Hearing needs: No Vision needs: Yes (Glasses) Questionnaire PHQ-9 Over the last 2 weeks, how often have you been bothered by any of the following problems? 1. Little interest or pleasure in doing things: not at all 2. Feeling down, depressed, or hopeless: not at all 3. Trouble falling or staying asleep, or sleeping too much: not at all 4. Feeling tired or having little energy: not at all 5. Poor appetite or overeating: not at all 6. Feeling bad about yourself - or that you are a failure or have let yourself or your family down: not at all 7. Trouble concentrating on things, such as reading the newspaper or watching television: not at all 8. Moving or speaking so slowly that other people could have noticed. Or the opposite - being so fidgety or restless that you have been moving around a lot more than usual: not at all 9. Thoughts that you would be better off or of hurting yourself in some way: not at all Total score: 0 Depression Screening Interpretation: Negative Depression Screening Done: Yes 96844 - PHQ-9 Billing: Yes Source: Developed by Drs. Reese Barrett, Pamela Hollis, Ry Woods and colleagues, with an educational kelly from [employer]. Thrive Questionnaire Date Thrive assessed: 06/16/23 I am a: Patient What is your living situation today?: I have a steady place to live Within the past 12 months, did the food you bought not last and you didn't have the money to get more?: Never true Within the past 12 months, did you worry whether your food would run out before you got money to buy more?: Never true Do you have trouble paying for medicines?: No Do you have trouble getting transportation to medical appointments?: No Do you have trouble paying your heating and electricity bill?: No Do you have trouble taking care of your child, family member or friend?: No Do you have trouble with day-to-day activities such as bathing, preparing meals, shopping, managing finances, etc.?: No Are you currently unemployed and looking for a job?: No Are you interested in more education?: No Please select the resources that you would like help with: None Currently or been in a relationship where the following occur: no concerns reported THRIVE Score: 0 AUDIT C Alcohol Use Questionnaire (AUDIT-C) 1. How often do you have a drink containing alcohol?: Monthly or less 2. How many drinks containing alcohol do you have on a typical day when you are drinking?: 1 or 2 Total Score: 1 FREDERICK-7 AMB Questionnaire FREDERICK-7 Date FREDERICK - 7 assessed: 06/16/23 Feeling nervous, anxious, or on edge: 3 = Nearly every day Not being able to stop or control worryin = Several days Worrying too much about different things: 3 = Nearly every day Trouble relaxin = More than half the days Being so restless that it is hard to sit still: 2 = More than half the days Becoming easily annoyed or irritable: 1 = Several days Feeling afraid as if something awful might happen: 2 = More than half the days Total FREDERICK-7 score (0-4 normal; 5-9 mild; 10-14 moderate; 15-21 severe): 14 Source: Developed by Drs. Reese Barrett, Pamela Hollis, Ry Woods and colleagues, with an educational kelly from [employer]. FREDERICK-7 Assessment Billing FREDERICK-7 Assessment Tool: FREDERICK-7 Assessment 53599 Review of Systems Const Denies headache(s) Eyes Denies loss of vision ENT Denies vertigo, Denies dizziness, Denies headache(s) and Denies sore throat Card Denies chest pain, Denies leg edema and Denies lightheadedness Resp Denies cough, Denies hemoptysis and Denies wheezing GI Denies abdominal pain, Denies melena, Denies constipation, Denies diarrhea and Denies vomiting Denies urinary frequency, Denies dysuria and Denies urinary urgency Musc Denies arthralgias, Denies joint swelling, Denies numbness and Denies tingling Neuro Denies Abnormal speech present, Denies behavioral changes, Denies vertigo, Denies dizziness, Denies headache(s), Denies loss of vision, Denies memory loss, Denies numbness and Denies tingling Psych Denies anxiety, Denies behavioral changes, Denies depression, Denies memory loss and Denies panic attacks Rajendra/Lymph Denies easy bleeding and Denies easy bruising Aller/Immun Denies wheezing Physical exam (Primary Care) Vital Signs: Last Vital Signs Pulse 108 H 06/16/23 10:01 BP 172/90 H 06/16/23 10:01 Pulse Ox 99 06/16/23 10:01 Oxygen Delivery Method Room Air 06/16/23 10:01 BMI result Body Mass Index 23.2 Tobacco/Smoking Status: Tobacco use Status Tobacco use date assessed 06/16/23 06/16/23 10:03 Patient Tobacco Use Status Former Tobacco user 06/16/23 10:03 e-Cigarette/Vaping Use Never Used 06/16/23 10:03 PHQ-9: PHQ-9 Score PHQ-9: Total score 0 06/16/23 10:19 Depression Screening Interpretation: Negative Thrive Assessment: Date of Thrive Assessment Date Thrive assessed 06/16/23 06/16/23 10:03 Currently or been in a relationship where the following occur: no concerns reported Const General: healthy appearing, no acute distress, alert and awake Nutritional Appearance: well nourished Orientation/consciousness: oriented to person, oriented to place and oriented to time HENMT Ears: TM's normal bilaterally General nose exam: Normal nasal mucous membranes and turbinates present Eyes Conjunctivae: conjunctivae normal Sclerae: sclerae normal Pupils: Equal, round and reactive pupils present Neck Neck: Yes no lymphadenopathy and Yes no JVD Thyroid: Thyroid normal Carotids: no bruits Resp Effort & Inspection: normal respiratory effort and not tachypneic Auscultation: no crackles, no rales, no rhonchi and no wheezes Cardio Rate: regular rate Rhythm: regular rhythm Heart sounds: no murmurs and normal S1 and S2 GI Palpation (GI): Soft to palpation, nontender, no hepatomegaly and no splenomegaly Auscultation: normal bowel sounds Skin General skin exam: no rashes or lesions noted and dry skin Neuro General: oriented to person, oriented to place and oriented to time Cranial nerves: Yes Equal, round and reactive pupils present Speech: No Abnormal speech present Gait exam (Neuro): Normal gait present Motor exam (neuro): no tremor noted Extrem Right upper extremity: full ROM Left upper extremity: full ROM Right lower extremity: full ROM; no edema Left lower extremity: full ROM; no edema Psych Mental Status: mental status grossly normal Speech and movement: Normal speech and movement present Affect: normal affect Attitude: cooperative Thought process: Normal thought process present Assessment and Plan Assessment & Plan (1) HLD (hyperlipidemia): Code(s): E78.5 - Hyperlipidemia, unspecified Qualifiers: Hyperlipidemia type: pure hypertriglyceridemia Qualified Code(s): E78.1 - Pure hyperglyceridemia Plan: Patient will continue current dose in therapy. Most recent lipid panel acceptable the exception of triglycerides which were slightly elevated. Goal LDL to be below 130 (2) HTN (hypertension): Code(s): I10 - Essential (primary) hypertension Qualifiers: Hypertension type: essential hypertension Qualified Code(s): I10 - Essential (primary) hypertension Plan: Patient's blood pressure elevated today in office. HAS SIGNIFICANT WHITE COAT HYPERTENSION. . She reports that home blood pressures are 110-120 systolic, she does not recall heart rates. She discontinued hydrochlorothiazide due to polyuria Will continue to monitor blood pressures at home with goal blood pressure to be below 140/90 consistently (3) Anxiety: Code(s): F41.9 - Anxiety disorder, unspecified Plan: Patient's FREDERICK-7 score positive for anxiety which has been a longstanding issue for her. She does have hydroxyzine available to her to use on an as-needed basis. Not interested in speaking with a mental health therapist. Orders: Orders Lipid Panel 6 Months E78.1 - Pure hyperglyceridemia Complete Blood Count no Diff 6 Months I10 - Essential (primary) hypertension Comprehensive [place]. Panel Fast 6 Months I10 - Essential (primary) hypertension Coding Level of Care Code Est Pt Level 4 (31103) Diagnoses Pure hypertriglyceridemia E78.1 Hyperlipidemia type: pure hypertriglyceridemia Essential hypertension I10 Hypertension type: essential hypertension Anxiety F41.9 Additional Codes FREDERICK-7 Assessment Billing - FREDERICK-7 Assessment Tool: FREDERICK-7 Assessment [id number] ([id number])
== END 2023-06-16 10:35 | disposition home or self-care (01) ==
LOC: HO.HMGH 10:06
PROVIDERS: PCP Physician Assistant; Visit Provider Physician Assistant
DX: E78.1 Pure hyperglyceridemia (principal); I10 Essential (primary) hypertension; F41.9 Anxiety disorder, unspecified
CPT/HCPCS: 99214

== ENCOUNTER 2023-12-13 06:06 | Outpatient (REF) | payer MEDICARE, SELFPAY ==
[2023-12-13 07:24] LABS: Hematocrit 46.8 % (37.0-47.0); Hemoglobin 15.6 g/dl (12.0-16.0); Mean Corpuscular HGB Conc 33.3 g/dl (31.0-35.0); Mean Corpuscular Hemoglobin 29.5 pg (27.0-33.0); Mean Corpuscular Volume 88.5 fL (80.0-98.0); Mean Platelet Volume 11.7 fL (9.4-12.3); Platelet Count 182 X10*3/uL (160-400); Red Blood Count 5.29 X10*6/uL (4.20-5.50); White Blood Count 9.8 X10*3/uL (4.8-10.8)
[2023-12-13 07:40] LABS: Alanine Aminotransferase 14 U/L (0-31); Albumin Level 4.4 g/dL (3.5-5.0); Alkaline Phosphatase 105 U/L (39-117); Anion Gap 17 (12-20); Aspartate Amino Transferase 20 U/L (5-31); Bilirubin Total 0.7 mg/dL (0.0-1.0); Blood Urea Nitrogen 12 mg/dL (9-16); Carbon Dioxide 25 mmol/L (22-29); Chloride 103 mmol/L (96-108); Cholesterol 163 mg/dL (<200); Estimated Glomerular Filt Rate > 60; Glucose Fasting 126 mg/dL (60-99); HDL Cholesterol 62 mg/dL (>40); LDL Cholesterol Calculated 70 mg/dL (<100); Potassium 3.9 mmol/L (3.3-5.1); Sodium 141 mmol/L (135-145); Total Protein 7.6 g/dL (6.5-8.0); Triglycerides 156 mg/dL (<150)
== END 2023-12-13 06:07 | disposition home or self-care (01) ==
LOC: HO.LAB 06:06
PROVIDERS: PCP Physician Assistant; Visit Provider Physician Assistant
DX: I10 Essential (primary) hypertension (principal); E78.1 Pure hyperglyceridemia
CPT/HCPCS: 36415; 80053; 80061; 85027

== ENCOUNTER 2023-12-20 09:59 | Outpatient (AMB) | payer MEDICARE, SELFPAY ==
--- NOTE | 2023-12-20 10:07 | MHC.PC.OV ---
Vital Signs 12/20/23 10:15 Height 5 ft 4 in Weight 137 lb 6 oz BMI 23.6 BP 160/74 H Blood Pressure Location Lt brachial Position Sitting Pulse 157 H Pulse Source Pulse Oximeter Pulse Oximetry (%) 94 Oxygen Delivery Method Room Air Intake Visit Reasons: f/u HTN/HLD Photography Manager Required: No Accompanied by: Self / Same As Patient Allergies barium sulfate [CONTRAST,ORAL] Allergy (Unknown, Verified 12/20/23 10:17) NAUSEA AND VOMITTING lisinopril Allergy (Unknown, Verified 12/20/23 10:17) Cough hydrochlorothiazide Adverse Reaction (Intermediate, Verified 12/20/23 10:17) Urinary frequency Medication List - Last Reconciled 12/20/23 by Odell Galan PA-C albuterol sulfate 90 mcg/actuation (Ventolin HFA) 1 inh inhalation Q6H PRN atorvastatin 20 mg PO DAILY hydroxyzine HCl 25 mg PO Q6H PRN inhalational spacing device (Aerochamber MV spacer) As directed valsartan 160 mg See Protocol PO DAILY Tobacco use date assessed: 06/16/23 Fall risk assessment: No Falls in past year Last assessed Fall Risk: 12/20/23 Dental Screening Dental Screen Date: 06/16/23 HPI f/u HTN/HLD HPI Details Asmita is a 73? y/o F here today for a follow-up visit. ? Patient has a pmhx significant for HTN, HLD, impaired glucose metabolism. Concern--> reports she has been really bothered by her anxiety as of late. She has a personal issues going on at home as she reports her has been needs cardiac surgery. She is also worried about the state of politics in the [place]. She continues to feel very anxious in is now willing to try medication to help her with her anxiety ? .. ? HTN: Blood pressure today in office elevated, does have white coat hypertension to a severe degree.? And heart rates 80s to 100. ?Denies any headaches, chest discomfort, shortness of breath. She return back to using 1 valsartan per day. Blood pressures at home are 110s to 120 systolic. ? .. ? Impaired glucose metabolism: A1c acceptable, patient's fasting blood sugar continues to be elevated. She reports some dietary indiscretion as of late which can be attributed to her elevated blood sugars. ? .. ? Hyperlipidemia: Most recent lipid panel showing excellent control over her total cholesterol, LDL and triglycerides. She continues on low-dose statin therapy. Laboratory Tests 06/10/23 06/10/23 12/13/23 06:34 Unknown 06:20 RBC 5.29 Hgb 15.6 Fasting Glucose 121 H 126 H Hemoglobin A1c % 5.3 Triglycerides 156 H Cholesterol 163 163 LDL Cholesterol, C alc 68 70 Urine Microalbumin 13.0 [facility] Medical History HTN (hypertension) Hypoxia Influenza A Post-menopausal Screening for breast cancer Surgical History History of colonoscopy History of incisional hernia repair History of colectomy Family History Father Alzheimers disease Prostate cancer Mother Pulmonary disease Daughter Cholesteatoma Social History Household Members: Spouse Housing: House Do you presently have visiting nurse or other home services: No Alcohol intake: current Alcohol intake frequency: holidays/special occasions only Alcohol type: wine Patient Tobacco Use Status: Former Tobacco user e-Cigarette/Vaping Use: Never Used Second Hand Smoke Exposure: No service: No Current occupational status: retired Cognitive needs: No Hearing needs: No Vision needs: Yes (Glasses) Questionnaire PHQ-9 Over the last 2 weeks, how often have you been bothered by any of the following problems? 1. Little interest or pleasure in doing things: not at all 2. Feeling down, depressed, or hopeless: not at all 3. Trouble falling or staying asleep, or sleeping too much: not at all 4. Feeling tired or having little energy: not at all 5. Poor appetite or overeating: not at all 6. Feeling bad about yourself - or that you are a failure or have let yourself or your family down: not at all 7. Trouble concentrating on things, such as reading the newspaper or watching television: not at all 8. Moving or speaking so slowly that other people could have noticed. Or the opposite - being so fidgety or restless that you have been moving around a lot more than usual: not at all 9. Thoughts that you would be better off or of hurting yourself in some way: not at all Total score: 0 Depression Screening Interpretation: Negative Depression Screening Done: Yes 43488 - PHQ-9 Billing: Yes Source: Developed by Drs. Reese Barrett, Pamela Hollis, Ry Woods and colleagues, with an educational kelly from [employer]. Thrive Questionnaire Date Thrive assessed: 12/20/23 I am a: Patient What is your living situation today?: I have a steady place to live Within the past 12 months, did the food you bought not last and you didn't have the money to get more?: Never true Within the past 12 months, did you worry whether your food would run out before you got money to buy more?: Never true Do you have trouble paying for medicines?: No Do you have trouble getting transportation to medical appointments?: No Do you have trouble paying your heating and electricity bill?: No Do you have trouble taking care of your child, family member or friend?: No Do you have trouble with day-to-day activities such as bathing, preparing meals, shopping, managing finances, etc.?: No Are you currently unemployed and looking for a job?: No Are you interested in more education?: No Please select the resources that you would like help with: None Currently or been in a relationship where the following occur: No concerns reported THRIVE Score: 0 AUDIT C Alcohol Use Questionnaire (AUDIT-C) 1. How often do you have a drink containing alcohol?: Monthly or less 2. How many drinks containing alcohol do you have on a typical day when you are drinking?: 1 or 2 3. How often do you have six or more drinks on one occasion?: Never Total Score: 1 FREDERICK-7 AMB Questionnaire FREDERICK-7 Date FREDERICK - 7 assessed: 06/16/23 Source: Developed by Drs. Reese Barrett, Pamela Hollis, Ry Woods and colleagues, with an educational kelly from [employer]. Review of Systems Const Denies headache(s) Eyes Denies loss of vision ENT Denies vertigo, Denies dizziness, Denies headache(s) and Denies sore throat Card Denies chest pain, Denies leg edema and Denies lightheadedness Resp Denies cough, Denies hemoptysis and Denies wheezing GI Denies abdominal pain, Denies melena, Denies constipation, Denies diarrhea and Denies vomiting Denies urinary frequency, Denies dysuria and Denies urinary urgency Musc Denies arthralgias, Denies joint swelling, Denies numbness and Denies tingling Neuro Denies Abnormal speech present, Denies behavioral changes, Denies vertigo, Denies dizziness, Denies headache(s), Denies loss of vision, Denies memory loss, Denies numbness and Denies tingling Psych Reports anxiety, Denies behavioral changes, Denies depression, Reports irritability, Denies memory loss, Reports mood swings and Reports panic attacks Rajendra/Lymph Denies easy bleeding and Denies easy bruising Aller/Immun Denies wheezing Physical exam (Primary Care) Vital Signs: Last Vital Signs Pulse 157 H 12/20/23 10:15 BP 160/74 H 12/20/23 10:15 Pulse Ox 94 12/20/23 10:15 Oxygen Delivery Method Room Air 12/20/23 10:15 BMI result Body Mass Index 23.6 Tobacco/Smoking Status: Tobacco use Status Tobacco use date assessed 06/16/23 12/20/23 10:07 Patient Tobacco Use Status Former Tobacco user 12/20/23 10:07 e-Cigarette/Vaping Use Never Used 12/20/23 10:07 PHQ-9: PHQ-9 Score PHQ-9: Total score 0 12/20/23 10:18 Depression Screening Interpretation: Negative Thrive Assessment: Date of Thrive Assessment Date Thrive assessed 12/20/23 12/20/23 10:07 Currently or been in a relationship where the following occur: No concerns reported Const General: healthy appearing, no acute distress, alert and awake Nutritional Appearance: well nourished Orientation/consciousness: oriented to person, oriented to place and oriented to time HENMT Ears: TM's normal bilaterally General nose exam: Normal nasal mucous membranes and turbinates present Eyes Conjunctivae: conjunctivae normal Sclerae: sclerae normal Pupils: Equal, round and reactive pupils present Neck Neck: Yes no lymphadenopathy and Yes no JVD Thyroid: Thyroid normal Carotids: no bruits Resp Effort & Inspection: normal respiratory effort and not tachypneic Auscultation: no crackles, no rales, no rhonchi and no wheezes Cardio Rate: regular rate Rhythm: regular rhythm Heart sounds: no murmurs and normal S1 and S2 GI Palpation (GI): Soft to palpation, nontender, no hepatomegaly and no splenomegaly Auscultation: normal bowel sounds Skin General skin exam: no rashes or lesions noted and dry skin Neuro General: oriented to person, oriented to place and oriented to time Cranial nerves: Yes Equal, round and reactive pupils present Speech: No Abnormal speech present Gait exam (Neuro): Normal gait present Motor exam (neuro): no tremor noted Extrem Right upper extremity: full ROM Left upper extremity: full ROM Right lower extremity: full ROM; no edema Left lower extremity: full ROM; no edema Psych Mental Status: mental status grossly normal Speech and movement: Normal speech and movement present Affect: normal affect Attitude: cooperative Thought process: Normal thought process present Coding Level of Care Code Est Pt Level 4 (71457) Diagnoses Essential hypertension I10 Hypertension type: essential hypertension Pure hypertriglyceridemia E78.1 Hyperlipidemia type: pure hypertriglyceridemia Anxiety F41.9 Impaired glucose metabolism R73.09 Balance disorder R26.89 Assessment & Plan Assessment & Plan (1) HTN (hypertension): Code(s): I10 - Essential (primary) hypertension Category: Medical Qualifiers: Hypertension type: essential hypertension Qualified Code(s): I10 - Essential (primary) hypertension Plan: Patient's blood pressure elevated today in office. I home blood pressures are stable on her current dose valsartan. Patient does experience severe anxiety which increases her blood pressure. Likely white coat hypertension Blood pressure to remain below 140/90 at home (2) HLD (hyperlipidemia): Code(s): E78.5 - Hyperlipidemia, unspecified Category: Medical Qualifiers: Hyperlipidemia type: pure hypertriglyceridemia Qualified Code(s): E78.1 - Pure hyperglyceridemia Plan: Patient's most recent lipid panel showing excellent control over total cholesterol and LDL. Patient continues on atorvastatin 20 mg daily with good effect. Goal LDL to remain below 100 (3) Anxiety: Code(s): F41.9 - Anxiety disorder, unspecified Category: Medical Plan: Patient continues to suffer with a generalized anxiety disorder. She is now interested in starting SSRI therapy to help her with her overall anxiety. Also will supply patient with as needed lorazepam to use for high points of anxiety. Will follow-up with patient in 4-6 weeks to evaluate the effectiveness of the medication. (4) Impaired glucose metabolism: Code(s): R73.09 - Other abnormal glucose Category: Medical Plan: Patient's most recent labs showing elevated fasting blood sugar at 126. A1c is have been acceptable. Will continue on lifestyle and dietary modifications to reduce her fasting blood sugars. (5) Balance disorder: Code(s): R26.89 - Other abnormalities of gait and mobility Category: Medical Plan: Patient does report she is concerned about balance as she feels that she almost falls at times. We did discuss a referral to physical therapy to help her with balance training though she is considering at this time and will let us now. Orders: Orders Microalbumin, Random (w Creat) 12/20/23 I10 - Essential (primary) hypertension Complete Blood Count no Diff 12/20/23 I10 - Essential (primary) hypertension Lipid Panel 12/20/23 E78.1 - Pure hyperglyceridemia Hemoglobin A1c 12/20/23 R73.09 - Other abnormal glucose Comprehensive [place]. Panel Fast 12/20/23 R73.09 - Other abnormal glucose Medications: New escitalopram oxalate (Lexapro) 5 mg PO DAILY 30 tabs 1RF 30 days F41.9 - Anxiety disorder, unspecified Discontinued hydroxyzine HCl Discontinued Reason: Doctor's Order 25 mg PO Q6H PRN 30 tabs 1RF Anxiety/Restlessness
[2023-12-20 10:15] VITALS: BP 160/74; PULSE 157; O2SAT 94; BMI 23.6
== END 2023-12-20 10:40 | disposition home or self-care (01) ==
PROVIDERS: PCP Physician Assistant; Visit Provider Physician Assistant
DX: I10 Essential (primary) hypertension (principal); E78.1 Pure hyperglyceridemia; F41.9 Anxiety disorder, unspecified; R73.09 Other abnormal glucose; R26.89 Other abnormalities of gait and mobility

== ENCOUNTER → 2023-12-20 09:59 | Outpatient (BNVA) | payer MEDICARE, SELFPAY | PROVIDERS: PCP Physician Assistant; Visit Provider Physician Assistant | DX: I10 Essential (primary) hypertension (principal); E78.1 Pure hyperglyceridemia; F41.9 Anxiety disorder, unspecified; R73.09 Other abnormal glucose; R26.89 Other abnormalities of gait and mobility | CPT/HCPCS: 99212 ==

== ENCOUNTER 2024-01-19 10:02 | Outpatient (AMB) | payer MEDICARE, SELFPAY ==
--- NOTE | 2024-01-19 09:59 | MHC.PC.OV ---
Vital Signs 01/19/24 09:59 Height 5 ft 4 in Blood Pressure Location Lt brachial Position Sitting Pulse Source Pulse Oximeter Oxygen Delivery Method Room Air Intake Visit Reasons: f/u anxety phone [phone] Allergies barium sulfate [CONTRAST,ORAL] Allergy (Unknown, Verified 12/20/23 10:17) NAUSEA AND VOMITTING lisinopril Allergy (Unknown, Verified 12/20/23 10:17) Cough hydrochlorothiazide Adverse Reaction (Intermediate, Verified 12/20/23 10:17) Urinary frequency Medication List - Last Reconciled 01/19/24 by Odell Galan PA-C albuterol sulfate 90 mcg/actuation (Ventolin HFA) 1 inh inhalation Q6H PRN atorvastatin 20 mg PO DAILY escitalopram oxalate (Lexapro) 5 mg PO DAILY 30 days inhalational spacing device (Aerochamber MV spacer) As directed valsartan 160 mg See Protocol PO DAILY Tobacco use date assessed: 06/16/23 Dental Screening Dental Screen Date: 06/16/23 HPI f/u anxety phone [phone] HPI Details Asmita is a 73? y/o F being evaluated today via telephone only. Today's to follow-up on her anxiety which has been much better since starting Lexapro 5 mg. She is bit more anxious recently due to the electron results. Though otherwise she reports she is doing okay will process. She would like to continue Lexapro 5 mg which she has found benefit with per ?? ? PFSH Medical History HTN (hypertension) Hypoxia Influenza A Post-menopausal Screening for breast cancer Surgical History History of colonoscopy History of incisional hernia repair History of colectomy Family History Father Alzheimers disease Prostate cancer Mother Pulmonary disease Daughter Cholesteatoma Social History Household Members: Spouse Housing: House Do you presently have visiting nurse or other home services: No Alcohol intake: current Alcohol intake frequency: holidays/special occasions only Alcohol type: wine Patient Tobacco Use Status: Former Tobacco user e-Cigarette/Vaping Use: Never Used Second Hand Smoke Exposure: No service: No Current occupational status: retired Cognitive needs: No Hearing needs: No Vision needs: Yes (Glasses) Questionnaire Thrive Questionnaire Date Thrive assessed: 12/20/23 FREDERICK-7 AMB Questionnaire FREDERICK-7 Date FREDERICK - 7 assessed: 06/16/23 Source: Developed by Drs. Reese Barrett, Pamela Hollis, Ry Woods and colleagues, with an educational kelly from [employer]. Review of Systems Const Denies headache(s) Eyes Denies loss of vision ENT Denies vertigo, Denies dizziness, Denies headache(s) and Denies sore throat Card Denies chest pain, Denies leg edema and Denies lightheadedness Resp Denies cough, Denies hemoptysis and Denies wheezing GI Denies abdominal pain, Denies melena, Denies constipation, Denies diarrhea and Denies vomiting Denies urinary frequency, Denies dysuria and Denies urinary urgency Musc Denies arthralgias, Denies joint swelling, Denies numbness and Denies tingling Neuro Denies behavioral changes, Denies vertigo, Denies dizziness, Denies headache(s), Denies loss of vision, Denies memory loss, Denies numbness and Denies tingling Psych Reports anxiety, Denies behavioral changes, Denies depression, Reports irritability, Denies memory loss, Reports mood swings and Denies panic attacks Rajendra/Lymph Denies easy bleeding and Denies easy bruising Aller/Immun Denies wheezing Physical exam (Primary Care) Vital Signs: Oxygen Delivery Method Room Air 01/19/24 09:59 Tobacco/Smoking Status: Tobacco use Status Tobacco use date assessed 06/16/23 01/19/24 10:01 Patient Tobacco Use Status Former Tobacco user 01/19/24 10:01 e-Cigarette/Vaping Use Never Used 01/19/24 10:01 Thrive Assessment: Date of Thrive Assessment Date Thrive assessed 12/20/23 01/19/24 10:01 Telehealth Telehealth Telehealth Platform: Telephone Location of provider rendering services: practice address Location of patient: address on file Patient Identification confirmed using: Name, : Yes Telehealth method: voice only Patient verbally consented to treatment: Yes Patient verbally consented to billing insurance company: Yes Patient informed of any privacy concerns related to visit: Yes Minutes spent on Phone/Video with Pt.: 11 Coding Level of Care Code Tele Est Pt Level 3 (64718) Diagnoses Anxiety F41.9 Assessment & Plan Assessment & Plan (1) Anxiety: Code(s): F41.9 - Anxiety disorder, unspecified Category: Medical Plan: Patient reports her anxiety has been much better with the Lexapro 5 mg. She would like to continue the medication. She does have some breakthrough anxiety due to recent electron results and reports it will take time to process. Otherwise still dealing with her 's medical issues as well which does cause her anxiety. Medications: Refilled escitalopram oxalate (Lexapro) 5 mg PO DAILY 30 days 30 tabs 3RF F41.9 - Anxiety disorder, unspecified
== END 2024-01-19 11:27 | disposition home or self-care (01) ==
LOC: HO.HMCH 10:02
PROVIDERS: PCP Physician Assistant; Visit Provider Physician Assistant
DX: F41.9 Anxiety disorder, unspecified (principal)

== ENCOUNTER 2024-06-21 09:57 | Outpatient (AMB) | payer MEDICARE, SELFPAY ==
--- NOTE | 2024-06-21 10:09 | MHC.PC.OV ---
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 Accompanied by: Self / Same As Patient Allergies barium sulfate [CONTRAST,ORAL] Allergy (Unknown, Verified 06/21/24 10:17) NAUSEA AND VOMITTING lisinopril Allergy (Unknown, Verified 06/21/24 10:17) Cough hydrochlorothiazide Adverse Reaction (Intermediate, Verified 06/21/24 10:17) Urinary frequency Medication List - Last Reconciled 06/21/24 by Odell Galan PA-C albuterol sulfate 90 mcg/actuation (Ventolin HFA) 1 inh inhalation Q6H PRN atorvastatin 20 mg PO DAILY escitalopram oxalate (Lexapro) 5 mg PO DAILY 90 days inhalational spacing device (Aerochamber MV spacer) As directed valsartan 160 mg See Protocol PO DAILY Tobacco use date assessed: 06/21/24 Fall risk assessment: No Falls in past year Last assessed Fall Risk: 06/21/24 Dental Screening Dental Screen Date: 06/21/24 Did you have a dental visit in the last 12 months?: Yes Did you have a dental problem in the last 6 months where you did not have access to dental care?: No Was dental information given to patient?: Patient has dentist HPI 6 months f/u HPI Details Asmita is a 74 y/o F here today for a follow-up visit. ? Patient has a pmhx significant for HTN, HLD, impaired glucose metabolism. Concern--> continues to tate anxiety related to the state of the [place] and some personal issues at home with her 's health. ? .. ? HTN: Blood pressure today in office elevated, does have white coat hypertension to a severe degree.? And heart rates 80s to 100. ?Denies any headaches, chest discomfort, shortness of breath. She return back to using 1 valsartan per day. Blood pressures at home are 110s to 120 systolic. .. Anxiety: Was started on escitalopram 10 mg a few months ago which did help reduce her anxiety. She has been dealing with some personal issues and her has been recently had open heart surgery which has increased her anxiety quite a bit more. She is interested in increasing her dose of escitalopram for better control over anxiety. She believes a lot of her anxious symptoms do relate to elevated blood pressure readings ? .. ? Impaired glucose metabolism: A1c acceptable, patient's fasting blood sugar continues to be elevated. She reports some dietary indiscretion as of late which can be attributed to her elevated blood sugars. ? .. ? Hyperlipidemia: Most recent lipid panel showing excellent control over her total cholesterol, LDL and triglycerides. She continues on low-dose statin therapy. [facility] Medical History HTN (hypertension) Hypoxia Influenza A Post-menopausal Screening for breast cancer Surgical History History of colonoscopy History of incisional hernia repair History of colectomy Family History Father Alzheimers disease Prostate cancer Mother Pulmonary disease Daughter Cholesteatoma Social History Household Members: Spouse Housing: House Do you presently have visiting nurse or other home services: No Alcohol intake: current Alcohol intake frequency: holidays/special occasions only Alcohol type: wine Patient Tobacco Use Status: Former Tobacco user e-Cigarette/Vaping Use: Never Used Second Hand Smoke Exposure: No service: No Current occupational status: retired Cognitive needs: No Hearing needs: No Vision needs: Yes (Glasses) Questionnaire PHQ-9 Over the last 2 weeks, how often have you been bothered by any of the following problems? 1. Little interest or pleasure in doing things: not at all 2. Feeling down, depressed, or hopeless: not at all 3. Trouble falling or staying asleep, or sleeping too much: not at all 4. Feeling tired or having little energy: not at all 5. Poor appetite or overeating: not at all 6. Feeling bad about yourself - or that you are a failure or have let yourself or your family down: not at all 7. Trouble concentrating on things, such as reading the newspaper or watching television: not at all 8. Moving or speaking so slowly that other people could have noticed. Or the opposite - being so fidgety or restless that you have been moving around a lot more than usual: not at all 9. Thoughts that you would be better off or of hurting yourself in some way: not at all Total score: 0 Depression Screening Interpretation: Negative Depression Screening Done: Yes 44508 - PHQ-9 Billing: Yes Source: Developed by Drs. Reese Barrett, Pamela Hollis, Ry Woods and colleagues, with an educational kelly from [employer]. Thrive Questionnaire Date Thrive assessed: 06/21/24 I am a: Patient What is your living situation today?: I have a steady place to live Within the past 12 months, did the food you bought not last and you didn't have the money to get more?: Never true Within the past 12 months, did you worry whether your food would run out before you got money to buy more?: Never true Do you have trouble paying for medicines?: No Do you have trouble getting transportation to medical appointments?: No Do you have trouble paying your heating and electricity bill?: No Do you have trouble taking care of your child, family member or friend?: No Do you have trouble with day-to-day activities such as bathing, preparing meals, shopping, managing finances, etc.?: No Are you currently unemployed and looking for a job?: No Are you interested in more education?: No Please select the resources that you would like help with: None Currently or been in a relationship where the following occur: No concerns reported THRIVE Score: 0 AUDIT C Alcohol Use Questionnaire (AUDIT-C) 1. How often do you have a drink containing alcohol?: Monthly or less 2. How many drinks containing alcohol do you have on a typical day when you are drinking?: 1 or 2 3. How often do you have six or more drinks on one occasion?: Never Total Score: 1 FREDERICK-7 AMB Questionnaire FREDERICK-7 Date FREDERICK - 7 assessed: 06/21/24 Feeling nervous, anxious, or on edge: 0 = Not at all Not being able to stop or control worryin = Not at all Worrying too much about different things: 0 = Not at all Trouble relaxin = Not at all Being so restless that it is hard to sit still: 0 = Not at all Becoming easily annoyed or irritable: 0 = Not at all Feeling afraid as if something awful might happen: 0 = Not at all Total FREDERICK-7 score (0-4 normal; 5-9 mild; 10-14 moderate; 15-21 severe): 0 Source: Developed by Drs. Reese Barrett, Pamela Hollis, Ry Woods and colleagues, with an educational kelly from [employer]. FREDERICK-7 Assessment Billing FREDERICK-7 Assessment Tool: FREDERICK-7 Assessment 23871 Review of Systems Const Denies headache(s) Eyes Denies loss of vision ENT Denies vertigo, Denies dizziness, Denies headache(s) and Denies sore throat Card Denies chest pain, Denies leg edema and Denies lightheadedness Resp Denies cough, Denies hemoptysis and Denies wheezing GI Denies abdominal pain, Denies melena, Denies constipation, Denies diarrhea and Denies vomiting Denies urinary frequency, Denies dysuria and Denies urinary urgency Musc Denies arthralgias, Denies joint swelling, Denies numbness and Denies tingling Neuro Denies Abnormal speech present, Denies behavioral changes, Denies vertigo, Denies dizziness, Denies headache(s), Denies loss of vision, Denies memory loss, Denies numbness and Denies tingling Psych Denies anxiety, Denies behavioral changes, Denies depression, Denies memory loss and Denies panic attacks Rajendra/Lymph Denies easy bleeding and Denies easy bruising Aller/Immun Denies wheezing Physical exam (Primary Care) Vital Signs: Last Vital Signs Temp 97.5 F 06/21/24 10:10 Pulse 137 H 06/21/24 10:10 BP 168/82 H 06/21/24 10:10 Pulse Ox 95 06/21/24 10:10 Oxygen Delivery Method Room Air 06/21/24 10:10 Care Plan Goal for BP management: Will continue current dose of antihypertensive medication-reports blood pressures at home are stable Next steps: Will work on reducing her anxiety as 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 BMI result Body Mass Index 23.3 Tobacco/Smoking Status: Tobacco use Status Tobacco use date assessed 06/21/24 06/21/24 10:15 Patient Tobacco Use Status Former Tobacco user 06/21/24 10:15 e-Cigarette/Vaping Use Never Used 06/21/24 10:15 PHQ-9: PHQ-9 Score PHQ-9: Total score 0 06/21/24 10:21 Depression Screening Interpretation: Negative Thrive Assessment: Date of Thrive Assessment Date Thrive assessed 06/21/24 06/21/24 10:15 Currently or been in a relationship where the following occur: No concerns reported Const General: healthy appearing, no acute distress, alert and awake Nutritional Appearance: well nourished Orientation/consciousness: oriented to person, oriented to place and oriented to time HENMT Ears: TM's normal bilaterally General nose exam: Normal nasal mucous membranes and turbinates present Eyes Conjunctivae: conjunctivae normal Sclerae: sclerae normal Pupils: Equal, round and reactive pupils present Neck Neck: Yes no lymphadenopathy and Yes no JVD Thyroid: Thyroid normal Carotids: no bruits Resp Effort & Inspection: normal respiratory effort and not tachypneic Auscultation: no crackles, no rales, no rhonchi and no wheezes Cardio Rate: regular rate Rhythm: regular rhythm Heart sounds: no murmurs and normal S1 and S2 GI Palpation (GI): Soft to palpation, nontender, no hepatomegaly and no splenomegaly Auscultation: normal bowel sounds Skin General skin exam: no rashes or lesions noted and dry skin Neuro General: oriented to person, oriented to place and oriented to time Cranial nerves: Yes Equal, round and reactive pupils present Speech: No Abnormal speech present Gait exam (Neuro): Normal gait present Motor exam (neuro): no tremor noted Extrem Right upper extremity: full ROM Left upper extremity: full ROM Right lower extremity: full ROM; no edema Left lower extremity: full ROM; no edema Psych Mental Status: mental status grossly normal Speech and movement: Normal speech and movement present Affect: normal affect Attitude: cooperative Thought process: Normal thought process present Coding Level of Care Code Est Pt Level 4 (99837) Diagnoses Essential hypertension I10 Hypertension type: essential hypertension Pure hypertriglyceridemia E78.1 Hyperlipidemia type: pure hypertriglyceridemia Anxiety F41.9 Impaired glucose metabolism R73.09 Additional Codes FREDERICK-7 Assessment Billing - FREDERICK-7 Assessment Tool: FREDERICK-7 Assessment [id number] ([id number]) PHQ-9 - 15593 - PHQ-9 Billing: Yes ([id number]) Assessment & Plan Assessment & Plan (1) HTN (hypertension): Code(s): I10 - Essential (primary) hypertension Category: Medical Qualifiers: Hypertension type: essential hypertension Qualified Code(s): I10 - Essential (primary) hypertension Plan: Patient's blood pressure elevated today in office. I home blood pressures are stable on her current dose valsartan. Patient does experience severe anxiety which increases her blood pressure. Likely white coat hypertension Blood pressure to remain below 140/90 at home (2) HLD (hyperlipidemia): Code(s): E78.5 - Hyperlipidemia, unspecified Category: Medical Qualifiers: Hyperlipidemia type: pure hypertriglyceridemia Qualified Code(s): E78.1 - Pure hyperglyceridemia Plan: Patient's most recent lipid panel showing excellent control over total cholesterol and LDL. Patient continues on atorvastatin 20 mg daily with good effect. Goal LDL to remain below 100 (3) Anxiety: Code(s): F41.9 - Anxiety disorder, unspecified Category: Medical Plan: Patient continues to suffer with a generalized anxiety disorder. She is interested in increasing her dose of escitalopram for better control over anxiety. Will increase her Lexapro to 10 mg (4) Impaired glucose metabolism: Code(s): R73.09 - Other abnormal glucose Category: Medical Plan: Patient's most recent labs showing elevated fasting blood sugar at 126. A1c is have been acceptable. Will continue on lifestyle and dietary modifications to reduce her fasting blood sugars. Medications: New escitalopram oxalate 10 mg PO DAILY 90 tabs 1RF 90 days F41.9 - Anxiety disorder, unspecified On Hold escitalopram oxalate (Lexapro) Hold Comment: Doctor's Order 5 mg PO DAILY 90 days 90 tabs 2RF F41.9 - Anxiety disorder, unspecified Patient Instructions: Goal: Blood pressure to be below 140/90 at home Barriers: Adherence to physical activity and healthy eating habits, chronic anxiety
[2024-06-21 10:10] VITALS: BP 168/82; PULSE 137; TEMP 36.4; O2SAT 95; BMI 23.3
== END 2024-06-21 10:32 | disposition home or self-care (01) ==
LOC: HO.HMCH 09:58
PROVIDERS: PCP Physician Assistant; Visit Provider Physician Assistant
DX: I10 Essential (primary) hypertension (principal); E78.1 Pure hyperglyceridemia; F41.9 Anxiety disorder, unspecified; R73.09 Other abnormal glucose

== ENCOUNTER → 2024-06-21 09:57 | Outpatient (BNVA) | payer MEDICARE, SELFPAY | PROVIDERS: PCP Physician Assistant; Visit Provider Physician Assistant | DX: I10 Essential (primary) hypertension (principal); E78.1 Pure hyperglyceridemia; F41.9 Anxiety disorder, unspecified; R73.09 Other abnormal glucose | CPT/HCPCS: 96127; 99212 ==

== ENCOUNTER 2024-12-21 09:53 | Outpatient (AMB) | payer MEDICARE, SELFPAY ==
--- NOTE | 2024-12-21 10:05 | A.OFFPC_ITS ---
Vital Signs 12/21/24 10:06 Height 5 ft 4 in Weight 133 lb 2 oz BMI 22.8 BP 150/90 H Blood Pressure Location Lt brachial Position Sitting Pulse 145 H Pulse Source Pulse Oximeter Temp 97.3 F Temp Source Temporal Artery Scan Pulse Oximetry (%) 91 L Oxygen Delivery Method Room Air Intake Visit Reasons: f/u HTN/ HLD Intake Note: Patient is here to follow up on HTN, HLD. 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 Instructions: Doctor's Order inhalational spacing device (Aerochamber MV spacer) As directed valsartan 160 mg See Protocol PO DAILY Tobacco use date assessed: 12/21/24 Fall risk assessment: No Falls in past year Last assessed Fall Risk: 12/21/24 Dental Screening Dental Screen Date: 06/21/24 HPI f/u HTN/ HLD HPI Details Asmita is a 74 y/o F here today for a follow-up visit. ? Patient has a pmhx significant for HTN, HLD, impaired glucose metabolism. Concern--> continues to tate anxiety related to the state of the [place] and some personal issues at home with her 's health. ? .. ? HTN: Blood pressure today in office elevated, does have white coat hypertension to a severe degree.?. ?Denies any headaches, chest discomfort, shortness of breath. She return back to using 1 valsartan per day. Blood pressures at home are 110s to 120 systolic. Noted particularly elevated heart rate today. She is willing to start beta- sundar to help reduce heart rates. Enedina start her on metoprolol 25 extended release. .. Anxiety: Was started on escitalopram 10 mg which she felt was effective though caused her a bit of side effect. She has reduced her escitalopram dose to 5 mg and will continue on this dose for the time being. She has been dealing with some personal issues and her has been recently had open heart surgery which has increased her anxiety quite a bit more. She believes a lot of her anxious symptoms do relate to elevated blood pressure readings ? .. ? Impaired glucose metabolism: A1c acceptable, patient's fasting blood sugar continues to be elevated. She reports some dietary indiscretion as of late which can be attributed to her elevated blood sugars. ? .. ? Hyperlipidemia: Most recent lipid panel showing excellent control over h er total cholesterol, LDL and triglycerides. She continues on low-dose statin therapy. [facility] Medical History HTN (hypertension) Hypoxia Influenza A Post-menopausal Screening for breast cancer Surgical History History of colonoscopy History of incisional hernia repair History of colectomy Family History Father Alzheimers disease Prostate cancer Mother Pulmonary disease Daughter Cholesteatoma Social History Household Members: Spouse Housing: House Do you presently have visiting nurse or other home services: No Alcohol intake: current Alcohol intake frequency: holidays/special occasions only Alcohol type: wine Patient Tobacco Use Status: Former Tobacco user e-Cigarette/Vaping Use: Never Used Second Hand Smoke Exposure: Yes service: No Current occupational status: retired Cognitive needs: No Hearing needs: No Vision needs: Yes (Glasses) Questionnaire Thrive Questionnaire Date Thrive assessed: 06/21/24 FREDERICK-7 AMB Questionnaire FREDERICK-7 Date FREDERICK - 7 assessed: 06/21/24 Source: Developed by Drs. Reese Barrett, Pamela Hollis, Ry Woods and colleagues, with an educational kelly from [employer]. Review of Systems Const Denies headache(s) Eyes Denies loss of vision ENT Denies vertigo, Denies dizziness, Denies headache(s) and Denies sore throat Card Denies chest pain, Denies leg edema and Denies lightheadedness Resp Denies cough, Denies hemoptysis and Denies wheezing GI Denies abdominal pain, Denies melena, Denies constipation, Denies diarrhea and Denies vomiting Denies urinary frequency, Denies dysuria and Denies urinary urgency Musc Denies arthralgias, Denies joint swelling, Denies numbness and Denies tingling Neuro Denies Abnormal speech present, Denies behavioral changes, Denies vertigo, Denies dizziness, Denies headache(s), Denies loss of vision, Denies memory loss, Denies numbness and Denies tingling Psych Denies anxiety, Denies behavioral changes, Denies depression, Denies memory loss and Denies panic attacks Rajendra/Lymph Denies easy bleeding and Denies easy bruising Aller/Immun Denies wheezing Physical exam (Primary Care) Vital Signs: Last Vital Signs Temp 97.3 F 12/21/24 10:06 Pulse 145 H 12/21/24 10:06 BP 150/90 H 12/21/24 10:06 Pulse Ox 91 L 12/21/24 10:06 Oxygen Delivery Method Room Air 12/21/24 10:06 BMI result Body Mass Index 22.8 Tobacco/Smoking Status: Tobacco use Status Tobacco use date assessed 12/21/24 12/21/24 10:28 Patient Tobacco Use Status Former Tobacco user 12/21/24 10:28 e-Cigarette/Vaping Use Never Used 12/21/24 10:28 Thrive Assessment: Date of Thrive Assessment Date Thrive assessed 06/21/24 12/21/24 10:28 Const General: healthy appearing, no acute distress, alert and awake Nutritional Appearance: well nourished Orientation/consciousness: oriented to person, oriented to place and oriented to time HENMT Ears: TM's normal bilaterally General nose exam: Normal nasal mucous membranes and turbinates present Eyes Conjunctivae: conjunctivae normal Sclerae: sclerae normal Pupils: Equal, round and reactive pupils present Neck Neck: Yes no lymphadenopathy and Yes no JVD Thyroid: Thyroid normal Carotids: no bruits Resp Effort & Inspection: normal respiratory effort and not tachypneic Auscultation: no crackles, no rales, no rhonchi and no wheezes Cardio Rate: regular rate Rhythm: regular rhythm Heart sounds: no murmurs and normal S1 and S2 GI Palpation (GI): Soft to palpation, nontender, no hepatomegaly and no splenomegaly Auscultation: normal bowel sounds Skin General skin exam: no rashes or lesions noted and dry skin Neuro General: oriented to person, oriented to place and oriented to time Cranial nerves: Yes Equal, round and reactive pupils present Speech: No Abnormal speech present Gait exam (Neuro): Normal gait present Motor exam (neuro): no tremor noted Extrem Right upper extremity: full ROM Left upper extremity: full ROM Right lower extremity: full ROM; no edema Left lower extremity: full ROM; no edema Psych Mental Status: mental status grossly normal Speech and movement: Normal speech and movement present Affect: normal affect Attitude: cooperative Thought process: Normal thought process present Coding Level of Care Code Est Pt Level 4 (16398) Diagnoses Essential hypertension I10 Hypertension type: essential hypertension Pure hypertriglyceridemia E78.1 Hyperlipidemia type: pure hypertriglyceridemia Anxiety F41.9 Impaired glucose metabolism R73.09 Tachycardia R00.0 Assessment & Plan Assessment & Plan (1) HTN (hypertension): Code(s): I10 - Essential (primary) hypertension Category: Medical Qualifiers: Hypertension type: essential hypertension Qualified Code(s): I10 - Essential (primary) hypertension Plan: Patient's blood pressure elevated today in office. I home blood pressures are stable on her current dose valsartan. Patient does experience severe anxiety which increases her blood pressure. Likely white coat hypertension Blood pressure to remain below 140/90 at home (2) HLD (hyperlipidemia): Code(s): E78.5 - Hyperlipidemia, unspecified Category: Medical Qualifiers: Hyperlipidemia type: pure hypertriglyceridemia Qualified Code(s): E78.1 - Pure hyperglyceridemia Plan: Patient's most recent lipid panel showing excellent control over total cholesterol and LDL. Patient continues on atorvastatin 20 mg daily with good effect. Goal LDL to remain below 100 (3) Anxiety: Code(s): F41.9 - Anxiety disorder, unspecified Category: Medical Plan: Patient continues to suffer with a generalized anxiety disorder. She is interested in increasing her dose of escitalopram for better control over anxiety. Will increase her Lexapro to 10 mg (4) Impaired glucose metabolism: Code(s): R73.09 - Other abnormal glucose Category: Medical Plan: Patient's most recent labs showing elevated fasting blood sugar at 126. A1c is have been acceptable. Will continue on lifestyle and dietary modifications to reduce her fasting blood sugars. (5) Tachycardia: Code(s): R00.0 - Tachycardia, unspecified Category: Medical Plan: Patient fairly tachycardic today in office, she is attributing this to her anxiety. Fortunately she is now willing to start beta-sundar thus will start metoprolol 25 extended release and advised to monitor blood pressures and heart rates at home to preferably be be between 80 and 100. Orders: Orders Complete Blood Count no Diff Today I10 - Essential (primary) hypertension Microalbumin, Random (w Creat) Today I10 - Essential (primary) hypertension Comprehensive [place]. Panel Fast Today I10 - Essential (primary) hypertension Hemoglobin A1c Today R73.09 - Other abnormal glucose Lipid Panel Today E78.1 - Pure hyperglyceridemia Medications: New metoprolol succinate ER 25 mg PO DAILY 90 tabs 1RF 90 days R00.0 - Tachycardia, unspecified
[2024-12-21 10:06] VITALS: BP 150/90; PULSE 145; TEMP 36.3; O2SAT 91; BMI 22.8
== END 2024-12-21 11:04 | disposition home or self-care (01) ==
LOC: HO.HMCH 09:54
PROVIDERS: PCP Physician Assistant; Visit Provider Physician Assistant
DX: I10 Essential (primary) hypertension (principal); E78.1 Pure hyperglyceridemia; F41.9 Anxiety disorder, unspecified; R73.09 Other abnormal glucose; R00.0 Tachycardia, unspecified

== ENCOUNTER → 2024-12-21 09:53 | Outpatient (BNVA) | payer MEDICARE, SELFPAY | PROVIDERS: PCP Physician Assistant; Visit Provider Physician Assistant | DX: I10 Essential (primary) hypertension (principal); E78.5 Hyperlipidemia, unspecified; F41.9 Anxiety disorder, unspecified; R73.01 Impaired fasting glucose; E78.1 Pure hyperglyceridemia; R73.09 Other abnormal glucose; R00.0 Tachycardia, unspecified | CPT/HCPCS: 99212 ==